=== PATIENT | female | born 1940 | race American Indian/Alaskan Native ===

== ENCOUNTER 2019-04-13 02:20 | Inpatient (IN) | payer MEDICARE ==
[2019-04-13] MEDS ORDERED: MORPHINE 2 MG/1 ML INJ IV ONE (02:25)
[2019-04-13] MEDS ORDERED: ONDANSETRON 4 MG/2 ML INJ IV ONE (02:25)
[2019-04-13] MEDS ORDERED: KETOROLAC 30 MG/1 ML INJ IV ONE (02:25)
[2019-04-13] MEDS ORDERED: HYDROmorphone 1 MG/1 ML INJ ONE (03:00)
[2019-04-13] MEDS ORDERED: HYDROmorphone 1 MG/1 ML INJ IV ONE (03:00)
[2019-04-13 03:22] LABS: Basophils % (Auto) 0.3 % (0.0-1.8); Eosinophils % (Auto) 0.2 % (0.0-4.3); Hematocrit 30.8 % (30.3-42.9); Hemoglobin 10.1 gm/dl (10.1-14.3); Lymphocytes # (Auto) 0.6 K/mm3 (1.2-5.4); Lymphocytes % (Auto) 9.1 % (13.4-35.0); Mean Corpuscular HGB Conc 33 % (30-34); Mean Corpuscular Volume 81 fl (79-97); Monocytes # (Auto) 0.3 K/mm3 (0.0-0.8); Monocytes % (Auto) 4.1 % (0.0-7.3); Platelet Count 227 K/mm3 (140-440); Red Blood Count 3.79 M/mm3 (3.65-5.03); Red Cell Distribution Width 16.4 % (13.2-15.2)
[2019-04-13 03:51] LABS: BUN/Creatinine Ratio 27; Blood Urea Nitrogen 19 mg/dL (7-17); Calcium 8.3 mg/dL (8.4-10.2); Hemolysis Index 4
--- NOTE | 2019-04-13 04:21 | XRay Report ---
X-RAY RIGHT FEMUR 2 VIEWS INDICATION / CLINICAL INFORMATION: fall with swelling and pain COMPARISON: None available. FINDINGS: BONES / JOINT(S): There is a severely comminuted and moderately displaced fracture of the distal femo ral metadiaphysis. Alignment of the right hip is within normal limits. Assessment of the right knee i s slightly limited on these projections, but without evidence for dislocation. SOFT TISSUES: Soft tissue swelling of the distal thigh. ADDITIONAL FINDINGS: None. IMPRESSION: 1. Severely comminuted and moderately displaced fracture of the distal femoral metadiaphysis. Signer Name: Nicci Wall MD Signed: 04/13/2019 4:17 AM Workstation Name: [email or web address]
[2019-04-13 04:35] LABS: INR 0.99 (0.87-1.13); Partial Thromboplastin Time 27.4 Sec. (24.2-36.6)
--- NOTE | 2019-04-13 04:54 | Emergency Department Report ---
ED Extremity Problem HPI - General Chief complaint: Extremity Injury, Lower Stated complaint: RIGHT THIGH PAIN Time Seen by Provider: 04/13/19 02:25 Source: patient, EMS Mode of arrival: Stretcher Limitations: Physical Limitation - History of Present Illness Initial comments: Patient is a 78-year-old female who fell from her bed prior to arrival and woke up to intense pain in her lower R thigh. Patient states pain is 10 out of 10 in severity. She had minimal relief with 100 of fentanyl prior to arrival. Patient states she doesn't believe she hit her. She had no headache. Patient states pain is worse with any movement and is better when her knee is flexed with pillows underneath. Severity scale (0 -10): 9 - Related Data Home Medications Medication Instructions Recorded Confirmed Last Taken C,E,Zinc,Copper 24/Om3/Lut/Luther 1 each PO DAILY 04/15/13 04/13/19 04/15/13 05:30 [Ocuvite Adult 50 Plus Softgel] Indra/D3/Mag11/Zinc/Academic Affairs Specialist/Owen/Bor 1 each PO BID 04/15/13 04/13/19 04/15/13 05:30 [Caltrate 600+D Plus Tablet] Insulin NPH/Regular [NovoLIN 70/30] 10 unit SQ QAM 04/15/13 04/13/19 04/15/13 05:45 Insulin NPH/Regular [NovoLIN 70/30] 10 unit SQ QPM 04/15/13 04/13/19 04/14/13 17:45 Aspirin 81 mg PO DAILY 04/13/19 04/13/19 Unknown Feosol 45mg 65 mg PO DAILY 04/13/19 04/13/19 Unknown Latanoprost 0.005% 1 drop OU HS 04/13/19 04/13/19 Unknown Losartan/Hydrochlorothiazide 100 mg PO DAILY 04/13/19 04/13/19 Unknown Previous Rx's Medication Instructions Recorded Last Taken Type Bisacodyl [Dulcolax suppos] 10 mg AR QDAY PRN #7 supp.rect 04/20/13 Unknown Rx Docusate Sodium [Colace CAP] 100 mg PO BID #30 capsule 04/20/13 Unknown Rx amLODIPine [Norvasc] 10 mg PO QDAY #30 tablet 04/20/13 Unknown Rx Apixaban [Eliquis] 2.5 mg PO BID 35 Days #70 tablet 04/20/19 Unknown Rx traMADol [Ultram 50 MG tab] 50 mg PO Q6HR PRN #20 tablet 04/20/19 Unknown Rx Allergies Allergy/AdvReac Type Severity Reaction Status Date / Time diclofenac sodium Allergy Unknown Verified 04/15/13 13:14 [From Voltaren] insulin isophane (NPH) Allergy Hives Verified 04/15/13 13:14 [Insulin Isophane NPH] clarithromycin [From Biaxin] AdvReac Vomiting Verified 04/15/13 13:14 hydrocodone [Hydrocodone] AdvReac Vomiting Verified 04/15/13 13:14 ED Review of Systems ROS: Stated complaint: RIGHT THIGH PAIN Other details as noted in HPI Comment: All other systems reviewed and negative ED Past Medical Hx - Past Medical History Hx Hypertension: Yes Hx Diabetes: Yes (SINCE 1972) Hx Sickle Cell Disease: No Hx Arthritis: Yes Hx Dementia: Yes - Surgical History Hx Cholecystectomy: Yes Additional Surgical History: tubal ligation, mole removed right arm (+ melanoma) - Social History Smoking Status: Never Smoker Substance Use Type: None - Medications Home Medications: Home Medications Medication Instructions Recorded Confirmed Last Taken Type C,E,Zinc,Copper 24/Om3/Lut/Luther 1 each PO DAILY 04/15/13 04/13/19 04/15/13 05:30 History [Ocuvite Adult 50 Plus Softgel] Indra/D3/Mag11/Zinc/Academic Affairs Specialist/Owen/Bor 1 each PO BID 04/15/13 04/13/19 04/15/13 05:30 History [Caltrate 600+D Plus Tablet] Insulin NPH/Regular [NovoLIN 70/30] 10 unit SQ QAM 04/15/13 04/13/19 04/15/13 05:45 History Insulin NPH/Regular [NovoLIN 70/30] 10 unit SQ QPM 04/15/13 04/13/19 04/14/13 17:45 History Bisacodyl [Dulcolax suppos] 10 mg AR QDAY PRN #7 supp.rect 04/20/13 04/13/19 Unknown Rx Docusate Sodium [Colace CAP] 100 mg PO BID #30 capsule 04/20/13 04/13/19 Unknown Rx amLODIPine [Norvasc] 10 mg PO QDAY #30 tablet 04/20/13 04/13/19 Unknown Rx Aspirin 81 mg PO DAILY 04/13/19 04/13/19 Unknown History Feosol 45mg 65 mg PO DAILY 04/13/19 04/13/19 Unknown History Latanoprost 0.005% 1 drop OU HS 04/13/19 04/13/19 Unknown History Losartan/Hydrochlorothiazide 100 mg PO DAILY 04/13/19 04/13/19 Unknown History Apixaban [Eliquis] 2.5 mg PO BID 35 Days #70 tablet 04/20/19 Unknown Rx traMADol [Ultram 50 MG tab] 50 mg PO Q6HR PRN #20 tablet 04/20/19 Unknown Rx ED Physical Exam - General Limitations: Physical Limitation General appearance: alert, in distress - Head Head exam: Present: atraumatic, normocephalic - Eye Eye exam: Present: normal appearance - ENT ENT exam: Present: mucous membranes moist - Neck Neck exam: Present: normal inspection - Respiratory Respiratory exam: Present: normal lung sounds bilaterally. Absent: respiratory distress, wheezes, rales - Cardiovascular Cardiovascular Exam: Present: regular rate, normal rhythm, normal heart sounds. Absent: systolic murmur, diastolic murmur, rubs, gallop - GI/Abdominal GI/Abdominal exam: Present: soft, normal bowel sounds. Absent: distended, tenderness, guarding - Extremities Exam Extremities exam: Present: normal inspection - Expanded Lower Extremity Exam Right Hip exam: Present: normal inspection. Absent: tenderness Upper Leg exam: Present: tenderness, swelling, deformity. Absent: full ROM Knee exam: Present: normal inspection Lower Leg exam: Present: normal inspection - Back Exam Back exam: Present: normal inspection - Neurological Exam Neurological exam: Present: alert, oriented X3 - Psychiatric Psychiatric exam: Present: normal affect, normal mood - Skin Skin exam: Present: warm, dry, intact, normal color. Absent: rash ED Course Vital Signs 04/13/19 04/13/19 04/13/19 02:26 02:28 02:30 Temperature Pulse Rate 71 Respiratory 22 Rate Blood Pressure 164/68 164/68 164/68 Blood Pressure 164/68 [Left] O2 Sat by Pulse 99 96 Oximetry 04/13/19 04/13/19 04/13/19 02:45 03:00 03:15 Temperature Pulse Rate Respiratory Rate Blood Pressure 151/60 160/57 158/60 Blood Pressure [Left] O2 Sat by Pulse 99 98 93 Oximetry 04/13/19 04/13/19 04/13/19 03:30 03:45 04:00 Temperature Pulse Rate Respiratory Rate Blood Pressure 153/58 159/56 147/57 Blood Pressure [Left] O2 Sat by Pulse 95 96 97 Oximetry 04/13/19 04/13/19 04/13/19 04:15 04:30 04:45 Temperature Pulse Rate Respiratory Rate Blood Pressure 150/60 144/53 158/58 Blood Pressure [Left] O2 Sat by Pulse 95 95 95 Oximetry 04/13/19 04/13/19 04/13/19 05:00 05:15 05:30 Temperature Pulse Rate Respiratory Rate Blood Pressure 158/58 151/60 155/59 Blood Pressure [Left] O2 Sat by Pulse 97 96 97 Oximetry 04/13/19 04/13/19 04/13/19 05:45 06:00 06:15 Temperature Pulse Rate Respiratory Rate Blood Pressure 139/55 145/59 148/56 Blood Pressure [Left] O2 Sat by Pulse 96 96 99 Oximetry 04/13/19 04/13/19 04/13/19 06:30 06:45 07:00 Temperature Pulse Rate Respiratory Rate Blood Pressure 150/62 151/61 159/66 Blood Pressure [Left] O2 Sat by Pulse 97 96 98 Oximetry 04/13/19 04/13/19 04/13/19 07:15 07:31 07:45 Temperature Pulse Rate Respiratory Rate Blood Pressure 167/64 167/64 167/64 Blood Pressure [Left] O2 Sat by Pulse 96 96 95 Oximetry 04/13/19 04/13/19 04/13/19 08:01 08:15 08:17 Temperature Pulse Rate 78 Respiratory 16 Rate Blood Pressure 167/64 167/64 Blood Pressure 167/74 [Left] O2 Sat by Pulse 98 96 96 Oximetry 04/13/19 04/13/19 04/13/19 08:30 08:45 09:00 Temperature Pulse Rate Respiratory Rate Blood Pressure 152/63 144/62 145/55 Blood Pressure [Left] O2 Sat by Pulse 96 98 97 Oximetry 04/13/19 04/13/19 04/13/19 09:15 09:30 09:45 Temperature Pulse Rate Respiratory Rate Blood Pressure 138/50 145/53 139/50 Blood Pressure [Left] O2 Sat by Pulse 97 96 97 Oximetry 04/13/19 04/13/19 04/13/19 10:00 10:15 10:30 Temperature Pulse Rate Respiratory Rate Blood Pressure 141/51 153/55 153/60 Blood Pressure [Left] O2 Sat by Pulse 97 97 97 Oximetry 04/13/19 04/13/19 04/13/19 10:45 11:00 11:15 Temperature Pulse Rate Respiratory Rate Blood Pressure 153/60 145/56 149/54 Blood Pressure [Left] O2 Sat by Pulse 97 98 97 Oximetry 04/13/19 04/13/19 04/13/19 11:25 11:30 11:45 Temperature Pulse Rate 86 Respiratory 17 Rate Blood Pressure 140/55 158/68 Blood Pressure 137/86 [Left] O2 Sat by Pulse 96 97 97 Oximetry 04/13/19 04/13/19 04/13/19 12:00 12:29 12:30 Temperature Pulse Rate Respiratory Rate Blood Pressure 171/62 171/62 161/57 Blood Pressure [Left] O2 Sat by Pulse 97 96 95 Oximetry 04/13/19 04/13/19 04/13/19 12:45 13:00 13:15 Temperature Pulse Rate Respiratory Rate Blood Pressure 139/52 144/50 147/46 Blood Pressure [Left] O2 Sat by Pulse 95 96 97 Oximetry 04/13/19 04/13/19 04/13/19 13:30 13:45 14:00 Temperature Pulse Rate Respiratory Rate Blood Pressure 148/55 148/61 147/54 Blood Pressure [Left] O2 Sat by Pulse 98 97 96 Oximetry 04/13/19 04/13/19 04/13/19 14:15 14:30 14:50 Temperature 99.2 F Pulse Rate 91 H Respiratory 18 Rate Blood Pressure 153/51 140/46 155/55 Blood Pressure [Left] O2 Sat by Pulse 97 97 96 Oximetry ED Medical Decision Making - Lab Data Result diagrams: 04/19/19 07:33 04/20/19 05:53 - Radiology Data X-RAY RIGHT FEMUR 2 VIEWS INDICATION / CLINICAL INFORMATION: fall with swelling and pain COMPARISON: None available. FINDINGS: BONES / JOINT(S): There is a severely comminuted and moderately displaced fracture of the distal femoral metadiaphysis. Alignment of the right hip is within normal limits. Assessment of the right knee is slightly limited on these projections, but without evidence for dislocation. SOFT TISSUES: Soft tissue swelling of the distal thigh. ADDITIONAL FINDINGS: None. IMPRESSION: 1. Severely comminuted and moderately displaced fracture of the distal femoral metadiaphysis. Signer Name: Nicci Wall MD Signed: 04/13/2019 4:17 AM Workstation Name: [id number] Critical care attestation.: If time is entered above; I have spent that time in minutes in the direct care of this critically ill patient, excluding procedure time. ED Disposition Clinical Impression: Femur fracture, right Qualifiers: Encounter type: initial encounter Femur location: shaft Fracture type: closed F racture morphology: comminuted Fracture alignment: displaced Qualified Code(s): S72.351A - Displaced comminuted fracture of shaft of right femur, initial encounter for closed fracture Disposition: DC-09 OP ADMIT IP TO THIS HOSP Is pt being admited?: Yes Does the pt Need Aspirin: No Condition: Fair
[2019-04-13] MEDS ORDERED: ONDANSETRON 4 MG/2 ML INJ IV PRN (10:54)
--- NOTE | 2019-04-13 10:54 | History and Physical Report ---
History of Present Illness Date of examination: 04/13/19 Date of admission: 04/13/19 Chief complaint: right hip fx History of present illness: 78-year-old female with past medical history diabetes mellitus type 2 and hypertension who presents status post fall from her bed earlier this morning with complaints of right hip pain. Patient reports the pain as 10/10 in s everity. Patient denies any syncope or loss of consciousness. Patient denies any chest pain or shortness of breath. No nausea vomiting or diarrhea. No cough or cold like symptoms. Past History Past Medical History: diabetes, hypertension, other (osteoporosis) Past Surgical History: No surgical history Social history: no significant social history Family history: no significant family history Medications and Allergies Allergies Allergy/AdvReac Type Severity Reaction Status Date / Time diclofenac sodium Allergy Unknown Verified 04/15/13 13:14 [From Voltaren] insulin isophane (NPH) Allergy Hives Verified 04/15/13 13:14 [Insulin Isophane NPH] clarithromycin [From Biaxin] AdvReac Vomiting Verified 04/15/13 13:14 hydrocodone [Hydrocodone] AdvReac Vomiting Verified 04/15/13 13:14 Home Medications Medication Instructions Recorded Confirmed Last Taken Type C,E,Zinc,Copper 24/Om3/Lut/Luther 1 each PO DAILY 04/15/13 04/13/19 04/15/13 05:30 History [Ocuvite Adult 50 Plus Softgel] Indra/D3/Mag11/Zinc/Toy Assembly Supervisor/Owen/Bor 1 each PO BID 04/15/13 04/13/19 04/15/13 05:30 History [Caltrate 600+D Plus Tablet] Insulin NPH/Regular [NovoLIN 70/30] 10 unit SQ QAM 04/15/13 04/13/19 04/15/13 05:45 History Insulin NPH/Regular [NovoLIN 70/30] 10 unit SQ QPM 04/15/13 04/13/19 04/14/13 17:45 History Bisacodyl [Dulcolax suppos] 10 mg NV QDAY PRN #7 supp.rect 04/20/13 04/13/19 Unknown Rx Docusate Sodium [Colace CAP] 100 mg PO BID #30 capsule 04/20/13 04/13/19 Unknown Rx amLODIPine [Norvasc] 10 mg PO QDAY #30 tablet 04/20/13 04/13/19 Unknown Rx Aspirin 81 mg PO DAILY 04/13/19 04/13/19 Unknown History Feosol 45mg 65 mg PO DAILY 04/13/19 04/13/19 Unknown History Latanoprost 0.005% 1 drop OU HS 04/13/19 04/13/19 Unknown History Losartan/Hydrochlorothiazide 100 mg PO DAILY 04/13/19 04/13/19 Unknown History Review of Systems All systems: negative Exam - Constitutional Vitals: Temp Pulse Resp BP Pulse Ox 78 16 167/74 96 04/13/19 08:17 04/13/19 08:17 04/13/19 08:17 04/13/19 08:17 General appearance: Present: no acute distress, well-nourished - EENT Eyes: Present: PERRL ENT: hearing intact, clear oral mucosa - Neck Neck: Present: supple, normal ROM - Respiratory Respiratory effort: normal Respiratory: bilateral: CTA - Cardiovascular Heart Sounds: Present: S1 & S2. Absent: rub, click - Extremities Extremities: pulses symmetrical Extremity abnormal: edema (right hip swelling and tenderness to palpation), tenderness (right hip) Peripheral Pulses: within normal limits - Abdominal General gastrointestinal: Present: soft, non-tender, non-distended, normal bowel sounds Female genitourinary: Present: normal - Integumentary Integumentary: Present: clear, warm, dry - Musculoskeletal Musculoskeletal: gait normal, strength equal bilaterally - Psychiatric Psychiatric: appropriate mood/affect, intact judgment & insight - Neurologic Neurologic: CNII-XII intact, moves all extremities Results - Labs CBC & Chem 7: 04/13/19 03:05 04/13/19 03:05 Labs: Laboratory Last Values WBC 6.8 K/mm3 (4.5-11.0) 04/13/19 03:05 RBC 3.79 M/mm3 (3.65-5.03) 04/13/19 03:05 Hgb 10.1 gm/dl (10.1-14.3) 04/13/19 03:05 Hct 30.8 % (30.3-42.9) 04/13/19 03:05 MCV 81 fl (79-97) 04/13/19 03:05 MCH 27 pg (28-32) L 04/13/19 03:05 MCHC 33 % (30-34) 04/13/19 03:05 RDW 16.4 % (13.2-15.2) H 04/13/19 03:05 Plt Count 227 K/mm3 (140-440) 04/13/19 03:05 Lymph % (Auto) 9.1 % (13.4-35.0) L 04/13/19 03:05 [place] % (Auto) 4.1 % (0.0-7.3) 04/13/19 03:05 Eos % (Auto) 0.2 % (0.0-4.3) 04/13/19 03:05 Baso % (Auto) 0.3 % (0.0-1.8) 04/13/19 03:05 Lymph # 0.6 K/mm3 (1.2-5.4) L 04/13/19 03:05 [place] # 0.3 K/mm3 (0.0-0.8) 04/13/19 03:05 Eos # 0.0 K/mm3 (0.0-0.4) 04/13/19 03:05 Baso # 0.0 K/mm3 (0.0-0.1) 04/13/19 03:05 Seg Neutrophils % 86.3 % (40.0-70.0) H 04/13/19 03:05 Seg Neutrophils # 5.8 K/mm3 (1.8-7.7) 04/13/19 03:05 PT 12.8 Sec. (12.2-14.9) 04/13/19 03:05 INR 0.99 (0.87-1.13) 04/13/19 03:05 APTT 27.4 Sec. (24.2-36.6) 04/13/19 03:05 Sodium 139 mmol/L (137-145) 04/13/19 03:05 Potassium 3.4 mmol/L (3.6-5.0) L 04/13/19 03:05 Chloride 100.8 mmol/L (98-107) 04/13/19 03:05 Carbon Dioxide 25 mmol/L (22-30) 04/13/19 03:05 Anion Gap 17 mmol/L 04/13/19 03:05 BUN 19 mg/dL (7-17) H 04/13/19 03:05 Creatinine 0.7 mg/dL (0.7-1.2) 04/13/19 03:05 Estimated GFR > 60 ml/min 04/13/19 03:05 BUN/Creatinine Ratio 27 % 04/13/19 03:05 Glucose 122 mg/dL (65-100) H 04/13/19 03:05 Calcium 8.3 mg/dL (8.4-10.2) L 04/13/19 03:05 Assessment and Plan Assessment and plan: Right hip fracture. Patient with x-ray revealing severely comminuted and moderately displaced fracture of the distal femoral metadiaphysis. Orthoplast consultation possible surgery in a.m. Pain control. Diabetes mellitus type II. Accu-Cheks and sliding scale regular insulin. Resume her home regimen. Hypertension. Resume Norvasc, losartan and hydrochlorothiazide.
[2019-04-13] MEDS: MORPHINE 2 MG/1 ML INJ IV PRN ×2 (11:26→19:37)
[2019-04-13] MEDS ORDERED: MORPHINE 2 MG/1 ML INJ ONE (11:26)
[2019-04-13 12:11] LABS: Bilirubin,Urine NEG (Negative); Blood,Urine NEG (Negative); Color,Urine Yellow (Yellow); Mucus,Urine FEW /HPF; Protein,Urine <15 mg/dL mg/dL (Negative); Urobilinogen,Urine < 2.0 mg/dL (<2.0)
--- NOTE | 2019-04-13 12:56 | XRay Report ---
LEFT TIBIA/FIBULA, 4 VIEWS, 04/13/2019 INDICATION / CLINICAL INFORMATION: history of ORIF left tibia. COMPARISON: 04/15/2013, FINDINGS: Intramedullary linda is present within the tibia and is intact. Prior ORIF of the distal fibula is note d. Old healed fracture of the mid fibular diaphysis is noted. No acute fracture or malalignment is id entified. The bones are slightly demineralized. IMPRESSION: 1. Prior ORIF of the distal fibula. Old healed fracture of the mid fibular shaft. 2. Intramedullary linda is present within the tibia. 3. No acute fracture noted. Signer Name: Jacquelyn Larios MD Signed: 04/13/2019 12:52 PM Workstation Name: [id number]
--- NOTE | 2019-04-13 12:59 | Cat Scan Report ---
CT lower extremity RT femur wo con INDICATION: comminuted right distal femur fx. TECHNIQUE: All CT scans at this location are performed using the following dose modulation technique: Automated exposure control. COMPARISON: Right femur x-ray 04/13/2019 FINDINGS: There is a markedly comminuted markedly displaced supracondylar fracture of the right distal femur me tadiaphysis with moderate posterior angulation of the main distal fracture fragment. The distal 0.8 a nd of the proximal fracture fragment located less than a centimeter away from the skin surface seen b est on coronal image 26 and sagittal image 56. No open compound fracture is seen. No fracture is seen within the right proximal femur or visualized portions of right hip. IMPRESSION: 1. Markedly comminuted markedly displaced supracondylar right distal femur fracture. 2. No open compound fracture or soft tissue gas. Signer Name: Wesley Garcia MD Signed: 04/13/2019 12:55 PM Workstation Name: [id number]
[2019-04-13] MEDS: SODIUM CHLORIDE 0.9% 1000 ML 1,000 ML IV SCH (14:56)
[2019-04-13] MEDS: FERROUS SULFATE 325 MG TAB PO SCH (16:26)
[2019-04-13] MEDS ORDERED: INSULIN REGULAR, HUMAN 100 UNITS/1 ML SUB-Q SCH (17:40)
[2019-04-13] MEDS ORDERED: INSULIN NPH/REGULAR 70/30 INJ SUB-Q ONE (18:00)
[2019-04-13] MEDS ORDERED: INSULIN NPH/REGULAR 70/30 INJ SUB-Q SCH (18:00)
[2019-04-13] MEDS: CALCIUM CARB/VIT D3/MINERALS 600 MG/800 UNITS TAB PO SCH (21:14)
[2019-04-14] MEDS: ACETAMINOPHEN 325 MG TAB PO PRN ×2 (00:11→19:48)
[2019-04-14] MEDS: MORPHINE 2 MG/1 ML INJ IV PRN (01:22)
[2019-04-14 05:47] LABS: Basophils % (Auto) 0.9 % (0.0-1.8); Eosinophils % (Auto) 0.7 % (0.0-4.3); Hematocrit 25.8 % (30.3-42.9); Hemoglobin 8.5 gm/dl (10.1-14.3); Lymphocytes # (Auto) 1.2 K/mm3 (1.2-5.4); Lymphocytes % (Auto) 34.1 % (13.4-35.0); Mean Corpuscular HGB Conc 33 % (30-34); Mean Corpuscular Volume 81 fl (79-97); Monocytes # (Auto) 0.3 K/mm3 (0.0-0.8); Monocytes % (Auto) 9.3 % (0.0-7.3); Platelet Count 198 K/mm3 (140-440); Red Blood Count 3.19 M/mm3 (3.65-5.03); Red Cell Distribution Width 16.5 % (13.2-15.2)
[2019-04-14 06:05] LABS: BUN/Creatinine Ratio 29; Blood Urea Nitrogen 23 mg/dL (7-17); Hemolysis Index 13
[2019-04-14] MEDS ORDERED: ONDANSETRON 4 MG/2 ML INJ IV PRN (08:28)
[2019-04-14] MEDS ORDERED: HYDROmorphone 1 MG/1 ML INJ IV PRN (08:28)
[2019-04-14] MEDS ORDERED: fentaNYL 100 MCG/2 ML INJ IV PRN (08:28)
[2019-04-14] MEDS ORDERED: PROPOFOL 200 MG/20 ML VIAL IV ONE (09:12)
[2019-04-14] MEDS ORDERED: HYDROmorphone 1 MG/1 ML INJ ONE (09:12)
[2019-04-14] MEDS ORDERED: LIDOCAINE MPF (2%) 20 MG/1 ML VIAL 5 ML ONE (09:12)
--- NOTE | 2019-04-14 09:28 | Progress Note ---
Assessment and Plan Assessment and plan: Right hip fracture. Patient with x-ray revealing severely comminuted and moderately displaced fracture of the distal femoral metadiaphysis. Ortho to perform surgery this morning. Continue Pain control. Diabetes mellitus type II. Accu-Cheks and sliding scale regular insulin. Continue Novolin units twice a day. Hypertension. Continue Norvasc, losartan and hydrochlorothiazide. History Interval history: No new issues overnight. Patient reports that her pain is under control. Hospitalist Physical - Constitutional Vitals: Temp Pulse Resp BP Pulse Ox 99.5 F 82 18 145/50 98 04/14/19 07:03 04/14/19 07:56 04/14/19 07:56 04/14/19 07:03 04/14/19 07:56 General appearance: Present: no acute distress, well-nourished - EENT Eyes: Present: PERRL, EOM intact ENT: hearing intact, clear oral mucosa, dentition normal - Neck Neck: Present: supple, normal ROM - Respiratory Respiratory effort: normal Respiratory: bilateral: CTA - Cardiovascular Rhythm: regular Heart Sounds: Present: S1 & S2. Absent: gallop, rub - Extremities Extremities: no ischemia, No edema, Full ROM - Abdominal General gastrointestinal: soft, non-tender, non-distended, normal bowel sounds - Integumentary Integumentary: Present: clear, warm, dry - Neurologic Neurologic: CNII-XII intact, moves all extremities Results - Labs CBC & Chem 7: 04/14/19 05:22 04/14/19 05:22 Labs: Laboratory Last Values WBC 3.6 K/mm3 (4.5-11.0) L 04/14/19 05:22 RBC 3.19 M/mm3 (3.65-5.03) L 04/14/19 05:22 Hgb 8.5 gm/dl (10.1-14.3) L 04/14/19 05:22 Hct 25.8 % (30.3-42.9) L 04/14/19 05:22 MCV 81 fl (79-97) 04/14/19 05:22 MCH 27 pg (28-32) L 04/14/19 05:22 MCHC 33 % (30-34) 04/14/19 05:22 RDW 16.5 % (13.2-15.2) H 04/14/19 05:22 Plt Count 198 K/mm3 (140-440) 04/14/19 05:22 Lymph % (Auto) 34.1 % (13.4-35.0) 04/14/19 05:22 [place] % (Auto) 9.3 % (0.0-7.3) H 04/14/19 05:22 Eos % (Auto) 0.7 % (0.0-4.3) 04/14/19 05:22 Baso % (Auto) 0.9 % (0.0-1.8) 04/14/19 05:22 Lymph # 1.2 K/mm3 (1.2-5.4) 04/14/19 05:22 [place] # 0.3 K/mm3 (0.0-0.8) 04/14/19 05:22 Eos # 0.0 K/mm3 (0.0-0.4) 04/14/19 05:22 Baso # 0.0 K/mm3 (0.0-0.1) 04/14/19 05:22 Seg Neutrophils % 55.0 % (40.0-70.0) 04/14/19 05:22 Seg Neutrophils # 2.0 K/mm3 (1.8-7.7) 04/14/19 05:22 PT 12.8 Sec. (12.2-14.9) 04/13/19 03:05 INR 0.99 (0.87-1.13) 04/13/19 03:05 APTT 27.4 Sec. (24.2-36.6) 04/13/19 03:05 Sodium 138 mmol/L (137-145) 04/14/19 05:22 Potassium 3.8 mmol/L (3.6-5.0) 04/14/19 05:22 Chloride 99.0 mmol/L (98-107) 04/14/19 05:22 Carbon Dioxide 25 mmol/L (22-30) 04/14/19 05:22 Anion Gap 18 mmol/L 04/14/19 05:22 BUN 23 mg/dL (7-17) H 04/14/19 05:22 Creatinine 0.8 mg/dL (0.7-1.2) 04/14/19 05:22 Estimated GFR > 60 ml/min 04/14/19 05:22 BUN/Creatinine Ratio 29 % 04/14/19 05:22 Glucose 128 mg/dL (65-100) H 04/14/19 05:22 POC Glucose 143 (70-105) H 04/14/19 07:10 Calcium 8.0 mg/dL (8.4-10.2) L 04/14/19 05:22 Urine Color Yellow (Yellow) 04/13/19 12:00 Urine Turbidity Clear (Clear) 04/13/19 12:00 Urine pH 5.0 (5.0-7.0) 04/13/19 12:00 Ur Specific [place] 1.014 (1.003-1.030) 04/13/19 12:00 Urine Protein <15 mg/dl mg/dL (Negative) 04/13/19 12:00 Urine Glucose (UA) Neg mg/dL (Negative) 04/13/19 12:00 Urine Ketones 20 mg/dL (Negative) 04/13/19 12:00 Urine Blood Neg (Negative) 04/13/19 12:00 Urine Nitrite Neg (Negative) 04/13/19 12:00 Urine Bilirubin Neg (Negative) 04/13/19 12:00 Urine Urobilinogen < 2.0 mg/dL (<2.0) 04/13/19 12:00 Ur Leukocyte Esterase Neg (Negative) 04/13/19 12:00 Urine WBC (Auto) 1.0 /HPF (0.0-6.0) 04/13/19 12:00 Urine RBC (Auto) 3.0 /HPF (0.0-6.0) 04/13/19 12:00 U Epithel Cells (Auto) < 1.0 /HPF (0-13.0) 04/13/19 12:00 Urine Mucus Few /HPF 04/13/19 12:00 Active Medications - Current Medications Current Medications: Generic Name Dose Route Start Last Admin Trade Name Freq PRN Reason Stop Dose Admin Acetaminophen 650 mg 04/13/19 10:54 04/14/19 00:11 Tylenol PO 650 mg Q4H PRN Administration Pain MILD(1-3)/Fever >100.5/[place] Amlodipine Besylate 10 mg 04/14/19 10:00 Norvasc PO QDAY PATTI Fentanyl 50 mcg 04/14/19 08:28 Sublimaze IV 04/14/19 16:00 Q5MIN PRN Pain , Severe (7-10) Ferrous Sulfate 325 mg 04/13/19 16:00 04/13/19 16:26 Feosol PO 325 mg DAILY PATTI Administration Hydrochlorothiazide 12.5 mg 04/14/19 10:00 Hctz PO QDAY PATTI Hydromorphone HCl 0.5 mg 04/14/19 08:28 Dilaudid IV 04/14/19 16:00 Q10MIN PRN Pain , Severe (7-10) Sodium Chloride 1,000 mls @ 42 mls/hr 04/13/19 11:00 04/13/19 14:56 Nacl 0.9% 1000 Ml IV 42 mls/hr DIRECT PATTI Administration Insulin Human Isoph/Insulin Regular 10 unit 04/14/19 17:00 Humulin 70/30 SUB-Q BIDDIAB [facility] Losartan Potassium 100 mg 04/14/19 10:00 Cozaar PO QDAY [facility] Morphine Sulfate 2 mg 04/13/19 10:54 04/14/19 01:22 Morphine IV 2 mg Q4H PRN Administration Pain, Moderate (4-6) Multivitamins/Minerals 1 each 04/13/19 22:00 04/13/19 21:14 Caltrate Plus PO 1 each BID PATTI Administration Multivitamins/Minerals 1 each 04/14/19 12:00 Theragran-M Tab PO QDAY [facility] Ondansetron HCl 4 mg 04/13/19 10:54 Zofran IV Q8H PRN Nausea And Vomiting Ondansetron HCl 4 mg 04/14/19 08:28 Zofran IV 04/14/19 16:00 ONCE PRN Nausea And Vomiting Sodium Chloride 10 ml 04/13/19 22:00 04/13/19 21:15 Sodium Chloride Flush Syringe 10 Ml IV 10 ml BID PATTI Administration Sodium Chloride 10 ml 04/13/19 10:54 04/13/19 15:07 Sodium Chloride Flush Syringe 10 Ml IV 10 ml PRN PRN Administration LINE FLUSH
[2019-04-14] MEDS ORDERED: ceFAZolin/Water 2 GM/20 ML 2 GM/20 ML SYRINGE IV ONE (09:38)
--- NOTE | 2019-04-14 09:50 | Anesthesia Day of Surgery ---
Anesthesia Day of Surgery - Day of Surgery Patient Examined: Yes Patient H&P Reviewed: Yes Patient is NPO: Yes
--- NOTE | 2019-04-14 09:54 | Anesthesia Consultation ---
Anesthesia Consult and Med Hx Date of service: 04/14/19 - Airway Anesthetic Teeth Evaluation: Good ROM Head & Neck: Adequate Mental/Hyoid Distance: Adequate Mallampati Class: Class II Intubation Access Assessment: Good - Pre-Operative Health Status ASA Pre-Surgery Classification: ASA2, Emergency Proposed Anesthetic Plan: General - Cardiovascular System Hx Hypertension: Yes - Endocrine Hx Non-Insulin Dependent Diabetes: Yes - Hematic Hx Anemia: Yes Hx Sickle Cell Disease: No - Additional Comments Anesthesia Medical History Comments: Pt very active and states she can climb two flights of stairs. Drives herself
[2019-04-14] MEDS ORDERED: HYDROCHLOROTHIAZIDE PO SCH (10:00)
[2019-04-14] MEDS ORDERED: [UNRECOGNIZED DRUG - OTHER] PO SCH (10:00)
[2019-04-14] MEDS ORDERED: LOSARTAN PO SCH (10:00)
[2019-04-14] MEDS ORDERED: FEOSOL PO SCH (10:00)
[2019-04-14] MEDS ORDERED: ONDANSETRON 4 MG/2 ML INJ ONE (10:55)
[2019-04-14] MEDS: FERROUS SULFATE 325 MG TAB PO SCH (10:58)
[2019-04-14] MEDS: LOSARTAN 50 MG TAB PO SCH (10:58)
[2019-04-14] MEDS: amLODIPine 10 MG TAB PO SCH (10:58)
[2019-04-14] MEDS: hydroCHLOROthiazide 12.5 MG CAP PO SCH (10:58)
[2019-04-14] MEDS: CALCIUM CARB/VIT D3/MINERALS 600 MG/800 UNITS TAB PO SCH ×2 (10:58→22:17)
--- NOTE | 2019-04-14 11:02 | Consultation ---
History of Present Illness - [facility] Consult date: 04/14/19 Consult reason: fracture History of present illness: 78-year-old female who complains of right knee and thigh pain after a fall at home patient states she got up from bed loss of balance and fell onto her right leg patient states she lost consciousness for a while woke up and was able to contact EMS she was brought to the emergency department at [facility] where x-rays were taken revealing a displaced right distal femur fracture Past History Past Medical History: diabetes, hypertension, other (osteoporosis) Past Surgical History: Other (intramedullary nail left tibia) Social history: no significant social history Family history: no significant family history Medications and Allergies Allergies Allergy/AdvReac Type Severity Reaction Status Date / Time diclofenac sodium Allergy Unknown Verified 04/15/13 13:14 [From Voltaren] insulin isophane (NPH) Allergy Hives Verified 04/15/13 13:14 [Insulin Isophane NPH] clarithromycin [From Biaxin] AdvReac Vomiting Verified 04/15/13 13:14 hydrocodone [Hydrocodone] AdvReac Vomiting Verified 04/15/13 13:14 Home Medications Medication Instructions Recorded Confirmed Last Taken Type C,E,Zinc,Copper 24/Om3/Lut/Luther 1 each PO DAILY 04/15/13 04/13/19 04/15/13 05:30 History [Ocuvite Adult 50 Plus Softgel] Indra/D3/Mag11/Zinc/Cargo Supervisor/Owen/Bor 1 each PO BID 04/15/13 04/13/19 04/15/13 05:30 History [Caltrate 600+D Plus Tablet] Insulin NPH/Regular [NovoLIN 70/30] 10 unit SQ QAM 04/15/13 04/13/19 04/15/13 05:45 History Insulin NPH/Regular [NovoLIN 70/30] 10 unit SQ QPM 04/15/13 04/13/19 04/14/13 17:45 History Bisacodyl [Dulcolax suppos] 10 mg LA QDAY PRN #7 supp.rect 04/20/13 04/13/19 Unknown Rx Docusate Sodium [Colace CAP] 100 mg PO BID #30 capsule 04/20/13 04/13/19 Unknown Rx amLODIPine [Norvasc] 10 mg PO QDAY #30 tablet 04/20/13 04/13/19 Unknown Rx Aspirin 81 mg PO DAILY 04/13/19 04/13/19 Unknown History Feosol 45mg 65 mg PO DAILY 04/13/19 04/13/19 Unknown History Latanoprost 0.005% 1 drop OU HS 04/13/19 04/13/19 Unknown History Losartan/Hydrochlorothiazide 100 mg PO DAILY 04/13/19 04/13/19 Unknown History Active Meds: Active Medications Acetaminophen (Tylenol) 650 mg PO Q4H PRN PRN Reason: Pain MILD(1-3)/Fever >100.5/[place] Last Admin: 04/14/19 00:11 Dose: 650 mg Documented by: Amlodipine Besylate (Norvasc) 10 mg PO QDAY [facility] Fentanyl (Sublimaze) 50 mcg IV Q5MIN PRN PRN Reason: Pain , Severe (7-10) Stop: 04/14/19 16:00 Ferrous Sulfate (Feosol) 325 mg PO DAILY [facility] Last Admin: 04/13/19 16:26 Dose: 325 mg Documented by: Hydrochlorothiazide (Hctz) 12.5 mg PO QDAY [facility] Hydromorphone HCl (Dilaudid) 0.5 mg IV Q10MIN PRN PRN Reason: Pain , Severe (7-10) Stop: 04/14/19 16:00 Sodium Chloride (Nacl 0.9% 1000 Ml) 1,000 mls @ 42 mls/hr IV DIRECT PATTI Last Admin: 04/13/19 14:56 Dose: 42 mls/hr Documented by: Insulin Human Isoph/Insulin Regular (Humulin 70/30) 10 unit SUB-Q BIDDIAB [facility] Losartan Potassium (Cozaar) 100 mg PO QDAY [facility] Morphine Sulfate (Morphine) 2 mg IV Q4H PRN PRN Reason: Pain, Moderate (4-6) Last Admin: 04/14/19 01:22 Dose: 2 mg Documented by: Multivitamins/Minerals (Caltrate Plus) 1 each PO BID [facility] Last Admin: 04/13/19 21:14 Dose: 1 each Documented by: Multivitamins/Minerals (Theragran-M Tab) 1 each PO QDAY [facility] Ondansetron HCl (Zofran) 4 mg IV Q8H PRN PRN Reason: Nausea And Vomiting Ondansetron HCl (Zofran) 4 mg IV ONCE PRN PRN Reason: Nausea And Vomiting Stop: 04/14/19 16:00 Sodium Chloride (Sodium Chloride Flush Syringe 10 Ml) 10 ml IV BID PATTI Last Admin: 04/13/19 21:15 Dose: 10 ml Documented by: Sodium Chloride (Sodium Chloride Flush Syringe 10 Ml) 10 ml IV PRN PRN PRN Reason: LINE FLUSH Last Admin: 04/13/19 15:07 Dose: 10 ml Documented by: Physical Examination - Physical exam Narrative exam: On physical examination significant muscle skeletal findings relates to the right lower extremity. Patient is noted to have shortening of the right thigh along with bruising noted the along the distal medial border she was tender on palpation compartments are soft distal neurovascular status is intact Plain x-rays taken of the right femur reveal a comminuted displaced distal femur fracture Eyes: PERRL ENT: Positive: clear oral mucosa Respiratory effort: normal Respiratory: bilateral: CTA Rhythm: regular Heart Sounds: Positive: S1 & S2 General gastrointestinal: Positive: soft, non-tender, non-distended, normal bowel sounds Integumentary: clear, warm, dry Neurologic: Positive: CNII-XII intact, moves all extremities, gait normal. Negative: focal deficits - Cervical Spine Neck pain: none Tenderness with palpation: none Full ROM: yes ROM: flexion: normal ROM: extension: normal ROM: rotation right: normal ROM: rotation left: normal ROM: lateral flexion right: normal ROM: lateral flexion left: normal - Lumbar Spine Back pain: none Tenderness with palpation: none Appearance: normal Full ROM: yes ROM: flexion: normal ROM: extension: normal ROM: rotation right: normal ROM: rotation left: normal ROM: lateral flexion right: normal ROM: lateral flexion left: normal Assessment and Plan Comminuted displaced right distal femur fracture Plan - discussed treatment options with the patient based on the history and physical exam and review of her x-rays I recommended surgical fixation with intramedullary nail right distal femur
--- NOTE | 2019-04-14 11:06 | Procedure Note ---
Date of procedure: 04/14/19 Pre-op diagnosis: displaced comminuted right distal femur fracture Post-op diagnosis: same Procedure: Closed reduction and insertion of intramedullary nail right distal femur Procedure The patient was brought to the OR on the hospital bed following induction and intubation by anesthesia she was placed onto the OR table in the supine position. The patient's right lower extremity was prepped and draped in the usual sterile manner. A timeout procedure was done to identify the patient and the correct operative site. An incision was made over the patellar tendon this was taken down sharply through skin and subcutaneous using digital palpation the intercondylar notch(palpated next a threaded guidewire was inserted into the distal femur and under C-arm visualization crossed over the fracture site into the proximal femoral canal The alignment was visualized again on C-arm following this the medullary canal was reamed to a 13 mm diameter this was then followed by insertion of a 12 x 380 mm retrograde IM nail again the nail was inserted in a retrograde fashion following this to distal locking screws were inserted using a targeting device following this a proximal locking screw was inserted going from anterior to posterior again C-arm x-rays were taken showing good reduction of the fracture and placement of all hardware following this the wound was copiously irrigated and was closed in a standard routine fashion. No complications patient was taken to postanesthesia recovery in a stable condition Anesthesia: NANCY Surgeon: ESTEBAN QUACH Wood Form Builder: SABRINA COPELAND Estimated blood loss: 50-100ml Pathology: none Condition: stable Disposition: PACU
[2019-04-14] MEDS ORDERED: LACTATED RINGERS 1,000 ML ONE (11:18)
[2019-04-14] MEDS ORDERED: INSULIN REGULAR, HUMAN 100 UNITS/1 ML SUB-Q ONE (12:19)
--- NOTE | 2019-04-14 13:06 | XRay Report ---
INTRAOPERATIVE FLUOROSCOPY: 5 IMAGES OF RIGHT FEMUR INDICATION / CLINICAL INFORMATION: MAIN: RETROGRADE DISTAL RIGHT FEMUR NAILING IMAGES IN OR.. TECHNIQUE: Intraoperative spot images were obtained during the procedure. FINDINGS: Retrograde statically locked intramedullary nail traverses the fracture of the right distal femur in expected position Fluoroscopy Time: 0.7 minutes. Fluoroscopy Images: 5. Signer Name: Wesley Garcia MD Signed: 04/14/2019 1:02 PM Workstation Name: [id number]
[2019-04-14] MEDS: MULTIVITAMINS,THER W-MINERALS TAB PO SCH (14:44)
--- NOTE | 2019-04-14 14:53 | Post Anesthesia Evaluation ---
- Post Anesthesia Evaluation Patient Participated: Yes Airway Patent: Yes Stable Respiratory Function: Yes Nausea/Vomiting: No Temp > 96.8F: Yes Pain Manageable: Yes Adequeate Hydration: Yes Anesthesia Complications: No Block Receding Appropriately: Not Applicable Patient on Ventilator: No
[2019-04-14] MEDS: INSULIN NPH/REGULAR 70/30 INJ SUB-Q SCH (18:11)
[2019-04-15 04:52] LABS: Basophils % (Auto) 0.3 % (0.0-1.8); Eosinophils % (Auto) 0.5 % (0.0-4.3); Hemoglobin 6.7 gm/dl (10.1-14.3); Lymphocytes # (Auto) 0.5 K/mm3 (1.2-5.4); Mean Corpuscular HGB Conc 33 % (30-34); Mean Corpuscular Volume 82 fl (79-97); Monocytes # (Auto) 0.4 K/mm3 (0.0-0.8); Monocytes % (Auto) 7.2 % (0.0-7.3); Platelet Count 125 K/mm3 (140-440); Red Blood Count 2.45 M/mm3 (3.65-5.03); Red Cell Distribution Width 16.6 % (13.2-15.2)
[2019-04-15 05:03] LABS: BUN/Creatinine Ratio 22; Blood Urea Nitrogen 13 mg/dL (7-17); Calcium 7.5 mg/dL (8.4-10.2); Hemolysis Index 7
[2019-04-15] MEDS: SODIUM CHLORIDE 0.9% 1000 ML 1,000 ML IV SCH (05:23)
[2019-04-15] MEDS: ACETAMINOPHEN 325 MG TAB PO PRN ×3 (05:24→16:40)
[2019-04-15] MEDS: INSULIN NPH/REGULAR 70/30 INJ SUB-Q SCH ×2 (08:49→16:41)
[2019-04-15] MEDS: ENOXAPARIN 40 MG/0.4 ML INJ SUB-Q SCH (08:59)
[2019-04-15] MEDS: FERROUS SULFATE 325 MG TAB PO SCH (09:00)
[2019-04-15] MEDS: MULTIVITAMINS,THER W-MINERALS TAB PO SCH (09:00)
[2019-04-15] MEDS: LOSARTAN 50 MG TAB PO SCH (09:00)
[2019-04-15] MEDS: hydroCHLOROthiazide 12.5 MG CAP PO SCH (09:00)
[2019-04-15] MEDS: amLODIPine 10 MG TAB PO SCH (09:00)
--- NOTE | 2019-04-15 10:08 | Progress Note ---
Assessment and Plan Assessment and plan: Right hip fracture. Patient with x-ray revealing severely comminuted and moderately displaced fracture of the distal femoral metadiaphysis. Ortho to perform surgery this morning. Continue Pain control. Diabetes mellitus type II. Accu-Cheks and sliding scale regular insulin. Continue Novolin units twice a day. Hypertension. Continue Norvasc, losartan and hydrochlorothiazide. Anemia. Transfuse 1 unit PRBCs. Etiology likely blood loss from surgery History Interval history: No new issues overnight. Patient reports that her pain is under control. Hospitalist Physical - Constitutional Vitals: Temp Pulse Resp BP Pulse Ox 100.1 F H 99 H 18 140/48 95 04/15/19 07:26 04/15/19 07:26 04/15/19 07:26 04/15/19 07:26 04/15/19 08:07 General appearance: Present: no acute distress, well-nourished - EENT Eyes: Present: PERRL, EOM intact ENT: hearing intact, clear oral mucosa, dentition normal - Neck Neck: Present: supple, normal ROM - Respiratory Respiratory effort: normal Respiratory: bilateral: CTA - Cardiovascular Rhythm: regular Heart Sounds: Present: S1 & S2. Absent: gallop, rub - Extremities Extremities: no ischemia, No edema, Full ROM - Abdominal General gastrointestinal: soft, non-tender, non-distended, normal bowel sounds - Integumentary Integumentary: Present: clear, warm, dry - Neurologic Neurologic: CNII-XII intact, moves all extremities Results - Labs CBC & Chem 7: 04/15/19 04:14 04/15/19 04:14 Labs: Laboratory Last Values WBC 4.9 K/mm3 (4.5-11.0) 04/15/19 04:14 RBC 2.45 M/mm3 (3.65-5.03) L 04/15/19 04:14 Hgb 6.7 gm/dl (10.1-14.3) L 04/15/19 04:14 Hct 20.0 % (30.3-42.9) L 04/15/19 04:14 MCV 82 fl (79-97) 04/15/19 04:14 MCH 27 pg (28-32) L 04/15/19 04:14 MCHC 33 % (30-34) 04/15/19 04:14 RDW 16.6 % (13.2-15.2) H 04/15/19 04:14 Plt Count 125 K/mm3 (140-440) L 04/15/19 04:14 Lymph % (Auto) 11.0 % (13.4-35.0) L 04/15/19 04:14 [place] % (Auto) 7.2 % (0.0-7.3) 04/15/19 04:14 Eos % (Auto) 0.5 % (0.0-4.3) 04/15/19 04:14 Baso % (Auto) 0.3 % (0.0-1.8) 04/15/19 04:14 Lymph # 0.5 K/mm3 (1.2-5.4) L 04/15/19 04:14 [place] # 0.4 K/mm3 (0.0-0.8) 04/15/19 04:14 Eos # 0.0 K/mm3 (0.0-0.4) 04/15/19 04:14 Baso # 0.0 K/mm3 (0.0-0.1) 04/15/19 04:14 Seg Neutrophils % 81.0 % (40.0-70.0) H 04/15/19 04:14 Seg Neutrophils # 4.0 K/mm3 (1.8-7.7) 04/15/19 04:14 PT 12.8 Sec. (12.2-14.9) 04/13/19 03:05 INR 0.99 (0.87-1.13) 04/13/19 03:05 APTT 27.4 Sec. (24.2-36.6) 04/13/19 03:05 Sodium 134 mmol/L (137-145) L 04/15/19 04:14 Potassium 3.8 mmol/L (3.6-5.0) 04/15/19 04:14 Chloride 99.0 mmol/L (98-107) 04/15/19 04:14 Carbon Dioxide 22 mmol/L (22-30) 04/15/19 04:14 Anion Gap 17 mmol/L 04/15/19 04:14 BUN 13 mg/dL (7-17) 04/15/19 04:14 Creatinine 0.6 mg/dL (0.7-1.2) L 04/15/19 04:14 Estimated GFR > 60 ml/min 04/15/19 04:14 BUN/Creatinine Ratio 22 % 04/15/19 04:14 Glucose 255 mg/dL (65-100) H 04/15/19 04:14 POC Glucose 276 (70-105) H 04/15/19 07:33 Calcium 7.5 mg/dL (8.4-10.2) L 04/15/19 04:14 Urine Color Yellow (Yellow) 04/13/19 12:00 Urine Turbidity Clear (Clear) 04/13/19 12:00 Urine pH 5.0 (5.0-7.0) 04/13/19 12:00 Ur Specific [place] 1.014 (1.003-1.030) 04/13/19 12:00 Urine Protein <15 mg/dl mg/dL (Negative) 04/13/19 12:00 Urine Glucose (UA) Neg mg/dL (Negative) 04/13/19 12:00 Urine Ketones 20 mg/dL (Negative) 04/13/19 12:00 Urine Blood Neg (Negative) 04/13/19 12:00 Urine Nitrite Neg (Negative) 04/13/19 12:00 Urine Bilirubin Neg (Negative) 04/13/19 12:00 Urine Urobilinogen < 2.0 mg/dL (<2.0) 04/13/19 12:00 Ur Leukocyte Esterase Neg (Negative) 04/13/19 12:00 Urine WBC (Auto) 1.0 /HPF (0.0-6.0) 04/13/19 12:00 Urine RBC (Auto) 3.0 /HPF (0.0-6.0) 04/13/19 12:00 U Epithel Cells (Auto) < 1.0 /HPF (0-13.0) 04/13/19 12:00 Urine Mucus Few /HPF 04/13/19 12:00 Active Medications - Current Medications Current Medications: Generic Name Dose Route Start Last Admin Trade Name Freq PRN Reason Stop Dose Admin Acetaminophen 650 mg 04/13/19 10:54 04/15/19 05:24 Tylenol PO 650 mg Q4H PRN Administration Pain MILD(1-3)/Fever >100.5/[place] Amlodipine Besylate 10 mg 04/14/19 10:00 04/15/19 09:00 Norvasc PO 10 mg QDAY PATTI Administration Enoxaparin Sodium 40 mg 04/15/19 10:00 04/15/19 08:59 Lovenox SUB-Q 40 mg QDAY PATTI Administration Ferrous Sulfate 325 mg 04/13/19 16:00 04/15/19 09:00 Feosol PO 325 mg DAILY PATTI Administration Hydrochlorothiazide 12.5 mg 04/14/19 10:00 04/15/19 09:00 Hctz PO 12.5 mg QDAY PATTI Administration Sodium Chloride 1,000 mls @ 42 mls/hr 04/13/19 11:00 04/15/19 05:23 Nacl 0.9% 1000 Ml IV 42 mls/hr DIRECT PATTI Administration Insulin Human Isoph/Insulin Regular 10 unit 04/14/19 17:00 04/15/19 08:49 Humulin 70/30 SUB-Q 10 unit BIDDIAB PATTI Administration Losartan Potassium 100 mg 04/14/19 10:00 04/15/19 09:00 Cozaar PO 100 mg QDAY PATTI Administration Morphine Sulfate 2 mg 04/13/19 10:54 04/14/19 01:22 Morphine IV 2 mg Q4H PRN Administration Pain, Moderate (4-6) Multivitamins/Minerals 1 each 04/13/19 22:00 04/14/19 22:17 Caltrate Plus PO 1 each BID PATTI Administration Multivitamins/Minerals 1 each 04/14/19 12:00 04/15/19 09:00 Theragran-M Tab PO 1 each QDAY PATTI Administration Ondansetron HCl 4 mg 04/13/19 10:54 Zofran IV Q8H PRN Nausea And Vomiting Sodium Chloride 10 ml 04/13/19 22:00 04/14/19 21:06 Sodium Chloride Flush Syringe 10 Ml IV 10 ml BID PATTI Administration Sodium Chloride 10 ml 04/13/19 10:54 04/13/19 15:07 Sodium Chloride Flush Syringe 10 Ml IV 10 ml PRN PRN Administration LINE FLUSH Sodium Chloride 10 ml 04/14/19 12:00 Sodium Chloride Flush Syringe 10 Ml IV 04/17/19 11:59 PRN NR
[2019-04-15] MEDS: CALCIUM CARB/VIT D3/MINERALS 600 MG/800 UNITS TAB PO SCH ×2 (10:29→21:44)
[2019-04-15] MEDS ORDERED: SODIUM CHLORIDE 0.9% 500 ML 500 ML IV NR (10:30)
[2019-04-15] MEDS: DOCUSATE SODIUM 100 MG CAP PO SCH (21:45)
[2019-04-16] MEDS: MORPHINE 2 MG/1 ML INJ IV PRN ×2 (02:26→23:37)
[2019-04-16] MEDS: ACETAMINOPHEN 325 MG TAB PO PRN ×2 (02:32→22:46)
[2019-04-16] MEDS ORDERED: DEXTROSE 50% IN WATER (25GM) 50 ML SYRINGE IV PRN (02:47)
[2019-04-16] MEDS: INSULIN NPH/REGULAR 70/30 INJ SUB-Q SCH ×2 (08:55→17:48)
[2019-04-16] MEDS: INSULIN REGULAR, HUMAN 100 UNITS/1 ML SUB-Q SCH ×4 (08:56→22:17)
[2019-04-16] MEDS: hydroCHLOROthiazide 12.5 MG CAP PO SCH (09:00)
[2019-04-16] MEDS: FERROUS SULFATE 325 MG TAB PO SCH (09:00)
[2019-04-16] MEDS: MULTIVITAMINS,THER W-MINERALS TAB PO SCH (09:00)
[2019-04-16] MEDS: CALCIUM CARB/VIT D3/MINERALS 600 MG/800 UNITS TAB PO SCH ×2 (09:00→22:46)
[2019-04-16] MEDS: ENOXAPARIN 40 MG/0.4 ML INJ SUB-Q SCH (09:00)
[2019-04-16] MEDS: DOCUSATE SODIUM 100 MG CAP PO SCH ×2 (09:01→22:46)
--- NOTE | 2019-04-16 11:43 | Progress Note ---
Assessment and Plan 78-year-old female with past medical history diabetes mellitus type 2 and hypertension who presents status post fall from her bed earlier this morning with complaints of right hip pain. Patient reports the pain as 10/10 in severity. Patient denies any syncope or loss of consciousness. Patient denies any chest pain or shortness of breath. No nausea vomiting or diarrhea. No cough or cold like symptoms. x-ray revealed severely comminuted and moderately displaced fracture of the distal femoral metadiaphysis. - Right hip fracture. Status post IM nail, of right femur postop day #2 Continue Pain control. PT - Diabetes mellitus type II. Accu-Checks and sliding scale regular insulin. Continue Novolin units twice a day. - Hypertension. Continue Norvasc, losartan and hydrochlorothiazide. - Anemia. Transfuse 1 unit PRBCs. Etiology likely blood loss from surgery -DVT prophylaxis with SCDs and Lovenox Subjective Date of service: 04/16/19 Principal diagnosis: right hip Fx, T2DM, HTN, anemia Interval history: Laboratory in bed. Pain right hip well controlled. Objective - Exam Narrative Exam: Constitutional: Well-nourished well-developed. In no distress Head: Normocephalic atraumatic Eyes: Pupils are equal round and reactive to light Nose: No enlarged turbinates, no septal deviation. Mouth: Moist mucous membranes. Neck: Supple no thyromegaly. No bruit. No JVD Heart: Regular rate and rhythm, S1-S2 normal. No rubs murmurs or gallop Lungs: Clear to auscultation bilaterally. no rales or rhonchi Abdomen: Soft, nontender. Bowel sound are present. Extremities: No edema, no cyanosis, no clubbing. Neuro: Alert oriented Oriented x3. No focal sensory or motor deficit. Skin: No rashes or hyperpigmented spots Musculoskeletal system: No joint pain or swelling Hematological: No petechia or subcutanous hemorrhages. Immunological: No multiple septic spots on the skin Lymphatic: No generalized lymphadenopathy Psychiatry: Euthymic. Calm. - Constitutional Vitals: Vital Signs - 12hr 04/16/19 04/16/19 04:24 06:49 Temperature 98.5 F 99.2 F Pulse Rate 92 H 88 Respiratory 18 20 Rate Blood Pressure 128/44 125/49 O2 Sat by Pulse 96 97 Oximetry - Labs CBC & Chem 7: 04/16/19 13:35 04/16/19 13:35 Labs: Abnormal lab results 04/15/19 04/15/19 04/15/19 Range/Units 11:11 11:44 16:40 POC Glucose 303 H 372 H (70-105) Crossmatch See Detail 04/15/19 04/16/19 Range/Units 21:08 06:59 POC Glucose 322 H 319 H (70-105) Crossmatch
[2019-04-16] MEDS: LOSARTAN 50 MG TAB PO SCH (12:12)
[2019-04-16] MEDS: amLODIPine 10 MG TAB PO SCH (12:13)
--- NOTE | 2019-04-16 13:28 | Progress Note ---
Assessment and Plan s/p IM nail right femur post op day #2 continue PT and rehab Subjective Date of service: 04/16/19 Interval history: no major c/o's noted, PT started, .... Objective Vital signs: Vital Signs - 12hr 04/16/19 04/16/19 04/16/19 04:24 06:49 11:00 Temperature 98.5 F 99.2 F 97.3 F L Pulse Rate 92 H 88 116 H Respiratory 18 20 20 Rate Blood Pressure 128/44 125/49 Blood Pressure 161/69 [Left] O2 Sat by Pulse 96 97 18 L Oximetry 04/16/19 04/16/19 11:44 12:12 Temperature 97.6 F Pulse Rate 117 H 117 H Respiratory 20 Rate Blood Pressure 161/69 161/69 Blood Pressure [Left] O2 Sat by Pulse 97 Oximetry Incision: healing, clean and dry Weight bearing status: partial - Labs CBC & BMP: 04/15/19 04:14 04/15/19 04:14 Labs: Abnormal lab results 04/15/19 04/15/19 04/15/19 Range/Units 11:11 16:40 21:08 POC Glucose 372 H 322 H (70-105) Crossmatch See Detail 04/16/19 04/16/19 Range/Units 06:59 11:55 POC Glucose 319 H 324 H (70-105) Crossmatch
[2019-04-16 14:07] LABS: Hematocrit 24.5 % (30.3-42.9); Hemoglobin 8.3 gm/dl (10.1-14.3); Mean Corpuscular HGB Conc 34 % (30-34); Mean Corpuscular Volume 81 fl (79-97); Platelet Count 147 K/mm3 (140-440); Red Blood Count 3.03 M/mm3 (3.65-5.03)
[2019-04-16 14:24] LABS: BUN/Creatinine Ratio 27; Blood Urea Nitrogen 16 mg/dL (7-17); Calcium 8.2 mg/dL (8.4-10.2); Hemolysis Index 5
[2019-04-17] MEDS: MORPHINE 2 MG/1 ML INJ IV PRN ×2 (05:26→21:27)
[2019-04-17] MEDS: MULTIVITAMINS,THER W-MINERALS TAB PO SCH (09:55)
[2019-04-17] MEDS: LOSARTAN 50 MG TAB PO SCH (09:55)
[2019-04-17] MEDS: amLODIPine 10 MG TAB PO SCH (09:55)
[2019-04-17] MEDS: FERROUS SULFATE 325 MG TAB PO SCH (09:55)
[2019-04-17] MEDS: hydroCHLOROthiazide 12.5 MG CAP PO SCH (09:55)
[2019-04-17] MEDS: DOCUSATE SODIUM 100 MG CAP PO SCH ×2 (09:55→21:26)
[2019-04-17] MEDS: ENOXAPARIN 40 MG/0.4 ML INJ SUB-Q SCH (09:56)
[2019-04-17] MEDS: CALCIUM CARB/VIT D3/MINERALS 600 MG/800 UNITS TAB PO SCH ×2 (09:56→21:26)
[2019-04-17] MEDS: INSULIN NPH/REGULAR 70/30 INJ SUB-Q SCH ×2 (09:57→18:52)
[2019-04-17] MEDS: INSULIN REGULAR, HUMAN 100 UNITS/1 ML SUB-Q SCH ×4 (09:59→21:37)
--- NOTE | 2019-04-17 13:00 | Progress Note ---
Assessment and Plan Assessment and plan: 78-year-old female with past medical history diabetes mellitus type 2 and hypertension who presents status post fall from her bed with complaints of right hip pain. X-ray revealed severely comminuted and moderately displaced fracture of the distal femoral metadiaphysis. - Right hip fracture. Status post IM nail, of right femur Continue Pain control. PT - Diabetes mellitus type II. Accu-Checks and sliding scale regular insulin. Continue Novolin units twice a day. - Hypertension. Continue Norvasc, losartan and hydrochlorothiazide. - Anemia, hemoglobin drop. Transfused 1 unit PRBCs. -DVT prophylaxis with SCDs and Lovenox History Interval history: less pain right hip Hospitalist Physical - Physical exam Narrative exam: Gen: Not in acute distress, Lying in bed, morbidly obese HEENT: Normocephalic, atraumatic Neck: supple, no JVD Heart: S1 and S2 reg, no murmurs, rubs or gallop Lungs: Clear to auscultation, no rhonchi, no wheeze Abd: soft, non tender, non distended, normal BS, Ext: No edema, no clubbing, no cyanosis, mild tender right hip, dressing over right hip Neuro: Awake, alert, oriented X 3, no focal neurological signs - Constitutional Vitals: Temp Pulse Resp BP Pulse Ox 99.3 F 97 H 18 123/51 96 04/17/19 12:16 04/17/19 12:16 04/17/19 12:16 04/17/19 12:16 04/17/19 12:16 General appearance: Present: no acute distress, well-nourished Results - Labs CBC & Chem 7: 04/16/19 13:35 04/16/19 13:35 Labs: Laboratory Last Values WBC 4.7 K/mm3 (4.5-11.0) 04/16/19 13:35 RBC 3.03 M/mm3 (3.65-5.03) L 04/16/19 13:35 Hgb 8.3 gm/dl (10.1-14.3) L 04/16/19 13:35 Hct 24.5 % (30.3-42.9) L 04/16/19 13:35 MCV 81 fl (79-97) 04/16/19 13:35 MCH 27 pg (28-32) L 04/16/19 13:35 MCHC 34 % (30-34) 04/16/19 13:35 RDW 16.0 % (13.2-15.2) H 04/16/19 13:35 Plt Count 147 K/mm3 (140-440) 04/16/19 13:35 Lymph % (Auto) 11.0 % (13.4-35.0) L 04/15/19 04:14 [place] % (Auto) 7.2 % (0.0-7.3) 04/15/19 04:14 Eos % (Auto) 0.5 % (0.0-4.3) 04/15/19 04:14 Baso % (Auto) 0.3 % (0.0-1.8) 04/15/19 04:14 Lymph # 0.5 K/mm3 (1.2-5.4) L 04/15/19 04:14 [place] # 0.4 K/mm3 (0.0-0.8) 04/15/19 04:14 Eos # 0.0 K/mm3 (0.0-0.4) 04/15/19 04:14 Baso # 0.0 K/mm3 (0.0-0.1) 04/15/19 04:14 Seg Neutrophils % 81.0 % (40.0-70.0) H 04/15/19 04:14 Seg Neutrophils # 4.0 K/mm3 (1.8-7.7) 04/15/19 04:14 PT 12.8 Sec. (12.2-14.9) 04/13/19 03:05 INR 0.99 (0.87-1.13) 04/13/19 03:05 APTT 27.4 Sec. (24.2-36.6) 04/13/19 03:05 Sodium 134 mmol/L (137-145) L 04/16/19 13:35 Potassium 3.5 mmol/L (3.6-5.0) L 04/16/19 13:35 Chloride 100.2 mmol/L (98-107) 04/16/19 13:35 Carbon Dioxide 26 mmol/L (22-30) 04/16/19 13:35 Anion Gap 11 mmol/L 04/16/19 13:35 BUN 16 mg/dL (7-17) 04/16/19 13:35 Creatinine 0.6 mg/dL (0.7-1.2) L 04/16/19 13:35 Estimated GFR > 60 ml/min 04/16/19 13:35 BUN/Creatinine Ratio 27 % 04/16/19 13:35 Glucose 225 mg/dL (65-100) H 04/16/19 13:35 POC Glucose 404 (70-105) H 04/17/19 11:32 Calcium 8.2 mg/dL (8.4-10.2) L 04/16/19 13:35 Urine Color Yellow (Yellow) 04/13/19 12:00 Urine Turbidity Clear (Clear) 04/13/19 12:00 Urine pH 5.0 (5.0-7.0) 04/13/19 12:00 Ur Specific [place] 1.014 (1.003-1.030) 04/13/19 12:00 Urine Protein <15 mg/dl mg/dL (Negative) 04/13/19 12:00 Urine Glucose (UA) Neg mg/dL (Negative) 04/13/19 12:00 Urine Ketones 20 mg/dL (Negative) 04/13/19 12:00 Urine Blood Neg (Negative) 04/13/19 12:00 Urine Nitrite Neg (Negative) 04/13/19 12:00 Urine Bilirubin Neg (Negative) 04/13/19 12:00 Urine Urobilinogen < 2.0 mg/dL (<2.0) 04/13/19 12:00 Ur Leukocyte Esterase Neg (Negative) 04/13/19 12:00 Urine WBC (Auto) 1.0 /HPF (0.0-6.0) 04/13/19 12:00 Urine RBC (Auto) 3.0 /HPF (0.0-6.0) 04/13/19 12:00 U Epithel Cells (Auto) < 1.0 /HPF (0-13.0) 04/13/19 12:00 Urine Mucus Few /HPF 04/13/19 12:00 Blood Type B NEGATIVE 04/15/19 11:11 Antibody Screen Negative 04/15/19 11:11 Crossmatch See Detail 04/15/19 11:11 Active Medications - Current Medications Current Medications: Generic Name Dose Route Start Last Admin Trade Name Freq PRN Reason Stop Dose Admin Acetaminophen 650 mg 04/13/19 10:54 04/16/19 22:46 Tylenol PO 650 mg Q4H PRN Administration Pain MILD(1-3)/Fever >100.5/[place] Amlodipine Besylate 10 mg 04/14/19 10:00 04/17/19 09:55 Norvasc PO 10 mg QDAY PATTI Administration Dextrose 50 ml 04/16/19 02:47 D50w (25gm) Syringe IV PRN PRN Hypoglycemia Docusate Sodium 100 mg 04/15/19 22:00 04/17/19 09:55 Colace PO 100 mg BID PATTI Administration Enoxaparin Sodium 40 mg 04/15/19 10:00 04/17/19 09:56 Lovenox SUB-Q 40 mg QDAY PATTI Administration Ferrous Sulfate 325 mg 04/13/19 16:00 04/17/19 09:55 Feosol PO 325 mg DAILY PATTI Administration Hydrochlorothiazide 12.5 mg 04/14/19 10:00 04/17/19 09:55 Hctz PO 12.5 mg QDAY PATTI Administration Sodium Chloride 1,000 mls @ 42 mls/hr 04/13/19 11:00 04/16/19 05:25 Nacl 0.9% 1000 Ml IV Infused DIRECT PATTI Infusion Insulin Human Isoph/Insulin Regular 10 unit 04/14/19 17:00 04/17/19 09:57 Humulin 70/30 SUB-Q 10 unit BIDDIAB PATTI Administration Insulin Human Regular 0 units 04/16/19 07:30 04/17/19 12:26 Humulin R SUB-Q 8 units ACHS PATTI Administration Protocol Losartan Potassium 100 mg 04/14/19 10:00 04/17/19 09:55 Cozaar PO 100 mg QDAY PATTI Administration Morphine Sulfate 2 mg 04/13/19 10:54 04/17/19 05:26 Morphine IV 2 mg Q4H PRN Administration Pain, Moderate (4-6) Multivitamins/Minerals 1 each 04/13/19 22:00 04/17/19 09:56 Caltrate Plus PO 1 each BID PATTI Administration Multivitamins/Minerals 1 each 04/14/19 12:00 04/17/19 09:55 Theragran-M Tab PO 1 each QDAY PATTI Administration Ondansetron HCl 4 mg 04/13/19 10:54 04/16/19 02:31 Zofran IV 4 mg Q8H PRN Administration Nausea And Vomiting Sodium Chloride 10 ml 04/13/19 22:00 04/17/19 10:00 Sodium Chloride Flush Syringe 10 Ml IV 10 ml BID PATTI Administration Sodium Chloride 10 ml 04/13/19 10:54 04/13/19 15:07 Sodium Chloride Flush Syringe 10 Ml IV 10 ml PRN PRN Administration LINE FLUSH
[2019-04-17] MEDS: ACETAMINOPHEN 325 MG TAB PO PRN (20:51)
[2019-04-18] MEDS: MORPHINE 2 MG/1 ML INJ IV PRN ×2 (04:47→21:18)
[2019-04-18] MEDS: ACETAMINOPHEN 325 MG TAB PO PRN (06:44)
[2019-04-18] MEDS: INSULIN REGULAR, HUMAN 100 UNITS/1 ML SUB-Q SCH ×4 (08:55→21:41)
[2019-04-18] MEDS: INSULIN NPH/REGULAR 70/30 INJ SUB-Q SCH ×2 (08:55→16:34)
[2019-04-18] MEDS: DOCUSATE SODIUM 100 MG CAP PO SCH ×2 (09:03→21:19)
[2019-04-18] MEDS: CALCIUM CARB/VIT D3/MINERALS 600 MG/800 UNITS TAB PO SCH ×2 (09:03→21:19)
[2019-04-18] MEDS: FERROUS SULFATE 325 MG TAB PO SCH (09:03)
[2019-04-18] MEDS: hydroCHLOROthiazide 12.5 MG CAP PO SCH (09:03)
[2019-04-18] MEDS: MULTIVITAMINS,THER W-MINERALS TAB PO SCH (09:04)
[2019-04-18] MEDS: ENOXAPARIN 40 MG/0.4 ML INJ SUB-Q SCH (09:04)
--- NOTE | 2019-04-18 11:44 | Progress Note ---
Assessment and Plan Assessment and plan: 78-year-old female with past medical history diabetes mellitus type 2 and hypertension who presents status post fall from her bed with complaints of right hip pain. X-ray revealed severely comminuted and moderately displaced fracture of the distal femoral metadiaphysis. - Right hip fracture. Status post IM nail, of right femur Continue Pain control. PT - Diabetes mellitus type II. Accu-Checks and sliding scale regular insulin. Continue Novolin units twice a day. - Hypertension. Continue Norvasc, losartan and hydrochlorothiazide. - Anemia, hemoglobin drop. Transfused 1 unit PRBCs. -DVT prophylaxis with SCDs and Lovenox Awaiting placement to SNF History Interval history: less pain right hip Hospitalist Physical - Physical exam Narrative exam: Gen: Not in acute distress, Lying in bed, morbidly obese HEENT: Normocephalic, atraumatic Neck: supple, no JVD Heart: S1 and S2 reg, no murmurs, rubs or gallop Lungs: Clear to auscultation, no rhonchi, no wheeze Abd: soft, non tender, non distended, normal BS, Ext: No edema, no clubbing, no cyanosis, mild tender right hip, dressing over right hip Neuro: Awake, alert, oriented X 3, no focal neurological signs - Constitutional Vitals: Temp Pulse Resp BP Pulse Ox 99.3 F 85 18 125/48 99 04/18/19 07:14 04/18/19 07:14 04/18/19 07:14 04/18/19 07:14 04/18/19 07:14 General appearance: Present: no acute distress, obese Results - Labs CBC & Chem 7: 04/16/19 13:35 04/16/19 13:35 Labs: Laboratory Last Values WBC 4.7 K/mm3 (4.5-11.0) 04/16/19 13:35 RBC 3.03 M/mm3 (3.65-5.03) L 04/16/19 13:35 Hgb 8.3 gm/dl (10.1-14.3) L 04/16/19 13:35 Hct 24.5 % (30.3-42.9) L 04/16/19 13:35 MCV 81 fl (79-97) 04/16/19 13:35 MCH 27 pg (28-32) L 04/16/19 13:35 MCHC 34 % (30-34) 04/16/19 13:35 RDW 16.0 % (13.2-15.2) H 04/16/19 13:35 Plt Count 147 K/mm3 (140-440) 04/16/19 13:35 Lymph % (Auto) 11.0 % (13.4-35.0) L 04/15/19 04:14 [place] % (Auto) 7.2 % (0.0-7.3) 04/15/19 04:14 Eos % (Auto) 0.5 % (0.0-4.3) 04/15/19 04:14 Baso % (Auto) 0.3 % (0.0-1.8) 04/15/19 04:14 Lymph # 0.5 K/mm3 (1.2-5.4) L 04/15/19 04:14 Love # 0.4 K/mm3 (0.0-0.8) 04/15/19 04:14 Eos # 0.0 K/mm3 (0.0-0.4) 04/15/19 04:14 Baso # 0.0 K/mm3 (0.0-0.1) 04/15/19 04:14 Seg Neutrophils % 81.0 % (40.0-70.0) H 04/15/19 04:14 Seg Neutrophils # 4.0 K/mm3 (1.8-7.7) 04/15/19 04:14 PT 12.8 Sec. (12.2-14.9) 04/13/19 03:05 INR 0.99 (0.87-1.13) 04/13/19 03:05 APTT 27.4 Sec. (24.2-36.6) 04/13/19 03:05 Sodium 134 mmol/L (137-145) L 04/16/19 13:35 Potassium 3.5 mmol/L (3.6-5.0) L 04/16/19 13:35 Chloride 100.2 mmol/L (98-107) 04/16/19 13:35 Carbon Dioxide 26 mmol/L (22-30) 04/16/19 13:35 Anion Gap 11 mmol/L 04/16/19 13:35 BUN 16 mg/dL (7-17) 04/16/19 13:35 Creatinine 0.6 mg/dL (0.7-1.2) L 04/16/19 13:35 Estimated GFR > 60 ml/min 04/16/19 13:35 BUN/Creatinine Ratio 27 % 04/16/19 13:35 Glucose 225 mg/dL (65-100) H 04/16/19 13:35 POC Glucose 223 (70-105) H 04/18/19 07:24 Calcium 8.2 mg/dL (8.4-10.2) L 04/16/19 13:35 Urine Color Yellow (Yellow) 04/13/19 12:00 Urine Turbidity Clear (Clear) 04/13/19 12:00 Urine pH 5.0 (5.0-7.0) 04/13/19 12:00 Ur Specific [place] 1.014 (1.003-1.030) 04/13/19 12:00 Urine Protein <15 mg/dl mg/dL (Negative) 04/13/19 12:00 Urine Glucose (UA) Neg mg/dL (Negative) 04/13/19 12:00 Urine Ketones 20 mg/dL (Negative) 04/13/19 12:00 Urine Blood Neg (Negative) 04/13/19 12:00 Urine Nitrite Neg (Negative) 04/13/19 12:00 Urine Bilirubin Neg (Negative) 04/13/19 12:00 Urine Urobilinogen < 2.0 mg/dL (<2.0) 04/13/19 12:00 Ur Leukocyte Esterase Neg (Negative) 04/13/19 12:00 Urine WBC (Auto) 1.0 /HPF (0.0-6.0) 04/13/19 12:00 Urine RBC (Auto) 3.0 /HPF (0.0-6.0) 04/13/19 12:00 U Epithel Cells (Auto) < 1.0 /HPF (0-13.0) 04/13/19 12:00 Urine Mucus Few /HPF 04/13/19 12:00 Blood Type B NEGATIVE 04/15/19 11:11 Antibody Screen Negative 04/15/19 11:11 Crossmatch See Detail 04/15/19 11:11 Active Medications - Current Medications Current Medications: Generic Name Dose Route Start Last Admin Trade Name Freq PRN Reason Stop Dose Admin Acetaminophen 650 mg 04/13/19 10:54 04/18/19 06:44 Tylenol PO 650 mg Q4H PRN Administration Pain MILD(1-3)/Fever >100.5/[place] Amlodipine Besylate 10 mg 04/14/19 10:00 04/17/19 09:55 Norvasc PO 10 mg QDAY PATTI Administration Dextrose 50 ml 04/16/19 02:47 D50w (25gm) Syringe IV PRN PRN Hypoglycemia Docusate Sodium 100 mg 04/15/19 22:00 04/18/19 09:03 Colace PO 100 mg BID PATTI Administration Enoxaparin Sodium 40 mg 04/15/19 10:00 04/18/19 09:04 Lovenox SUB-Q 40 mg QDAY PATTI Administration Ferrous Sulfate 325 mg 04/13/19 16:00 04/18/19 09:03 Feosol PO 325 mg DAILY PATTI Administration Hydrochlorothiazide 12.5 mg 04/14/19 10:00 04/18/19 09:03 Hctz PO 12.5 mg QDAY PATTI Administration Sodium Chloride 1,000 mls @ 42 mls/hr 04/13/19 11:00 04/16/19 05:25 Nacl 0.9% 1000 Ml IV Infused DIRECT PATTI Infusion Insulin Human Isoph/Insulin Regular 10 unit 04/14/19 17:00 04/18/19 08:55 Humulin 70/30 SUB-Q 10 unit BIDDIAB PATTI Administration Insulin Human Regular 0 units 04/16/19 07:30 04/18/19 08:55 Humulin R SUB-Q 3 units ACHS PATTI Administration Protocol Losartan Potassium 100 mg 04/14/19 10:00 04/17/19 09:55 Cozaar PO 100 mg QDAY PATTI Administration Morphine Sulfate 2 mg 04/13/19 10:54 04/18/19 04:47 Morphine IV 2 mg Q4H PRN Administration Pain, Moderate (4-6) Multivitamins/Minerals 1 each 04/13/19 22:00 04/18/19 09:03 Caltrate Plus PO 1 each BID PATTI Administration Multivitamins/Minerals 1 each 04/14/19 12:00 04/18/19 09:04 Theragran-M Tab PO 1 each QDAY PATTI Administration Ondansetron HCl 4 mg 04/13/19 10:54 04/16/19 02:31 Zofran IV 4 mg Q8H PRN Administration Nausea And Vomiting Sodium Chloride 10 ml 04/13/19 22:00 04/18/19 09:05 Sodium Chloride Flush Syringe 10 Ml IV 10 ml BID PATTI Administration Sodium Chloride 10 ml 04/13/19 10:54 04/13/19 15:07 Sodium Chloride Flush Syringe 10 Ml IV 10 ml PRN PRN Administration LINE FLUSH
[2019-04-18] MEDS: LOSARTAN 50 MG TAB PO SCH (13:12)
[2019-04-18] MEDS: amLODIPine 10 MG TAB PO SCH (13:13)
[2019-04-18] MEDS ORDERED: MAGNESIUM HYDROXIDE (MOM) ORAL LIQD UDC PO ONE (19:58)
[2019-04-18] MEDS ORDERED: POLYETHYLENE GLYCOL 3350 17 GM POWDER PO PRN (19:58)
[2019-04-19] MEDS: MORPHINE 2 MG/1 ML INJ IV PRN ×4 (02:28→22:25)
[2019-04-19 07:53] LABS: Hematocrit 25.4 % (30.3-42.9); Hemoglobin 8.3 gm/dl (10.1-14.3); Mean Corpuscular HGB Conc 33 % (30-34); Mean Corpuscular Volume 85 fl (79-97); Red Cell Distribution Width 16.7 % (13.2-15.2)
[2019-04-19] MEDS: INSULIN NPH/REGULAR 70/30 INJ SUB-Q SCH ×2 (07:55→18:03)
[2019-04-19] MEDS: INSULIN REGULAR, HUMAN 100 UNITS/1 ML SUB-Q SCH ×4 (07:56→22:00)
[2019-04-19 08:16] LABS: BUN/Creatinine Ratio 22; Blood Urea Nitrogen 13 mg/dL (7-17); Calcium 8.3 mg/dL (8.4-10.2); Hemolysis Index 7
[2019-04-19] MEDS: amLODIPine 10 MG TAB PO SCH (10:05)
[2019-04-19] MEDS: ENOXAPARIN 40 MG/0.4 ML INJ SUB-Q SCH (10:05)
[2019-04-19] MEDS: DOCUSATE SODIUM 100 MG CAP PO SCH ×2 (10:05→22:25)
[2019-04-19] MEDS: LOSARTAN 50 MG TAB PO SCH (10:05)
[2019-04-19] MEDS: FERROUS SULFATE 325 MG TAB PO SCH (10:05)
[2019-04-19] MEDS: MULTIVITAMINS,THER W-MINERALS TAB PO SCH (10:05)
[2019-04-19] MEDS: hydroCHLOROthiazide 12.5 MG CAP PO SCH (10:06)
[2019-04-19 10:31] LABS: Platelet Count 204 K/mm3 (140-440)
[2019-04-19] MEDS: CALCIUM CARB/VIT D3/MINERALS 600 MG/800 UNITS TAB PO SCH ×2 (13:24→22:24)
[2019-04-19] MEDS ORDERED: SODIUM CHLORIDE 0.9% 1000 ML 1,000 ML IV SCH (16:00)
--- NOTE | 2019-04-19 16:33 | Progress Note ---
Assessment and Plan Assessment and plan: 78-year-old female with past medical history diabetes mellitus type 2 and hypertension who presents status post fall from her bed with complaints of right hip pain. X-ray revealed severely comminuted and moderately displaced fracture of the distal femoral metadiaphysis. - Right hip fracture. Status post IM nail, of right femur Continue Pain control. PT - Diabetes mellitus type II, UNCONTROLLED Increase Novolin 70/30 to 16 units twice a day. start NS - Hypertension. Continue Norvasc, losartan and hydrochlorothiazide. - Anemia, hemoglobin drop. Transfused 1 unit PRBCs. -DVT prophylaxis with SCDs and Lovenox was asked by wind field manager that Insurance denied SNF placement and requested Peer to peer. I called and discussed with physician making a case that she needs SNF placement, however Physician still states patient denied SNF placement. History Interval history: less pain right hip Hospitalist Physical - Physical exam Narrative exam: Gen: Not in acute distress, Lying in bed, morbidly obese HEENT: Normocephalic, atraumatic Neck: supple, no JVD Heart: S1 and S2 reg, no murmurs, rubs or gallop Lungs: Clear to auscultation, no rhonchi, no wheeze Abd: soft, non tender, non distended, normal BS, Ext: No edema, no clubbing, no cyanosis, mild tender right hip, dressing over right hip Neuro: Awake, alert, oriented X 3, no focal neurological signs - Constitutional Vitals: Temp Pulse Resp BP Pulse Ox 99.0 F 86 20 135/49 97 04/19/19 12:41 04/19/19 12:41 04/19/19 12:41 04/19/19 12:41 04/19/19 12:41 General appearance: Present: no acute distress, obese Results - Labs CBC & Chem 7: 04/19/19 07:33 04/19/19 07:33 Labs: Laboratory Last Values WBC 4.7 K/mm3 (4.5-11.0) 04/19/19 07:33 RBC 3.00 M/mm3 (3.65-5.03) L 04/19/19 07:33 Hgb 8.3 gm/dl (10.1-14.3) L 04/19/19 07:33 Hct 25.4 % (30.3-42.9) L 04/19/19 07:33 MCV 85 fl (79-97) 04/19/19 07:33 MCH 28 pg (28-32) 04/19/19 07:33 MCHC 33 % (30-34) 04/19/19 07:33 RDW 16.7 % (13.2-15.2) H 04/19/19 07:33 Plt Count 204 K/mm3 (140-440) 04/19/19 07:33 Lymph % (Auto) 11.0 % (13.4-35.0) L 04/15/19 04:14 [place] % (Auto) 7.2 % (0.0-7.3) 04/15/19 04:14 Eos % (Auto) 0.5 % (0.0-4.3) 04/15/19 04:14 Baso % (Auto) 0.3 % (0.0-1.8) 04/15/19 04:14 Lymph # 0.5 K/mm3 (1.2-5.4) L 04/15/19 04:14 [place] # 0.4 K/mm3 (0.0-0.8) 04/15/19 04:14 Eos # 0.0 K/mm3 (0.0-0.4) 04/15/19 04:14 Baso # 0.0 K/mm3 (0.0-0.1) 04/15/19 04:14 Seg Neutrophils % 81.0 % (40.0-70.0) H 04/15/19 04:14 Seg Neutrophils # 4.0 K/mm3 (1.8-7.7) 04/15/19 04:14 PT 12.8 Sec. (12.2-14.9) 04/13/19 03:05 INR 0.99 (0.87-1.13) 04/13/19 03:05 APTT 27.4 Sec. (24.2-36.6) 04/13/19 03:05 Sodium 134 mmol/L (137-145) L 04/19/19 07:33 Potassium 4.6 mmol/L (3.6-5.0) D 04/19/19 07:33 Chloride 92.2 mmol/L (98-107) L 04/19/19 07:33 Carbon Dioxide 21 mmol/L (22-30) L 04/19/19 07:33 Anion Gap 25 mmol/L 04/19/19 07:33 BUN 13 mg/dL (7-17) 04/19/19 07:33 Creatinine 0.6 mg/dL (0.7-1.2) L 04/19/19 07:33 Estimated GFR > 60 ml/min 04/19/19 07:33 BUN/Creatinine Ratio 22 % 04/19/19 07:33 Glucose 479 mg/dL (65-100) H 04/19/19 07:33 POC Glucose 206 (70-105) H 04/19/19 12:14 Hemoglobin A1c 6.3 % (4-6) H 04/19/19 07:33 Calcium 8.3 mg/dL (8.4-10.2) L 04/19/19 07:33 Urine Color Yellow (Yellow) 04/13/19 12:00 Urine Turbidity Clear (Clear) 04/13/19 12:00 Urine pH 5.0 (5.0-7.0) 04/13/19 12:00 Ur Specific [place] 1.014 (1.003-1.030) 04/13/19 12:00 Urine Protein <15 mg/dl mg/dL (Negative) 04/13/19 12:00 Urine Glucose (UA) Neg mg/dL (Negative) 04/13/19 12:00 Urine Ketones 20 mg/dL (Negative) 04/13/19 12:00 Urine Blood Neg (Negative) 04/13/19 12:00 Urine Nitrite Neg (Negative) 04/13/19 12:00 Urine Bilirubin Neg (Negative) 04/13/19 12:00 Urine Urobilinogen < 2.0 mg/dL (<2.0) 04/13/19 12:00 Ur Leukocyte Esterase Neg (Negative) 04/13/19 12:00 Urine WBC (Auto) 1.0 /HPF (0.0-6.0) 04/13/19 12:00 Urine RBC (Auto) 3.0 /HPF (0.0-6.0) 04/13/19 12:00 U Epithel Cells (Auto) < 1.0 /HPF (0-13.0) 04/13/19 12:00 Urine Mucus Few /HPF 04/13/19 12:00 Blood Type B NEGATIVE 04/15/19 11:11 Antibody Screen Negative 04/15/19 11:11 Crossmatch See Detail 04/15/19 11:11 Active Medications - Current Medications Current Medications: Generic Name Dose Route Start Last Admin Trade Name Freq PRN Reason Stop Dose Admin Acetaminophen 650 mg 04/13/19 10:54 04/18/19 06:44 Tylenol PO 650 mg Q4H PRN Administration Pain MILD(1-3)/Fever >100.5/[place] Amlodipine Besylate 10 mg 04/14/19 10:00 04/19/19 10:05 Norvasc PO 10 mg QDAY PATTI Administration Dextrose 50 ml 04/16/19 02:47 D50w (25gm) Syringe IV PRN PRN Hypoglycemia Docusate Sodium 100 mg 04/15/19 22:00 04/19/19 10:05 Colace PO 100 mg BID PATTI Administration Enoxaparin Sodium 40 mg 04/15/19 10:00 04/19/19 10:05 Lovenox SUB-Q 40 mg QDAY PATTI Administration Ferrous Sulfate 325 mg 04/13/19 16:00 04/19/19 10:05 Feosol PO 325 mg DAILY PATTI Administration Hydrochlorothiazide 12.5 mg 04/14/19 10:00 04/19/19 10:06 Hctz PO 12.5 mg QDAY PATTI Administration Sodium Chloride 1,000 mls @ 75 mls/hr 04/19/19 16:00 Nacl 0.9% 1000 Ml IV DIRECT PATTI Insulin Human Isoph/Insulin Regular 16 unit 04/19/19 17:00 Humulin 70/30 SUB-Q BIDDIAB PATTI Insulin Human Regular 0 units 04/16/19 07:30 04/19/19 12:17 Humulin R SUB-Q 3 units ACHS PATTI Administration Protocol Losartan Potassium 100 mg 04/14/19 10:00 04/19/19 10:05 Cozaar PO 100 mg QDAY PATTI Administration Morphine Sulfate 2 mg 04/13/19 10:54 04/19/19 13:27 Morphine IV 2 mg Q4H PRN Administration Pain, Moderate (4-6) Multivitamins/Minerals 1 each 04/13/19 22:00 04/19/19 13:24 Caltrate Plus PO 1 each BID PATTI Administration Multivitamins/Minerals 1 each 04/14/19 12:00 04/19/19 10:05 Theragran-M Tab PO 1 each QDAY PATTI Administration Ondansetron HCl 4 mg 04/13/19 10:54 04/16/19 02:31 Zofran IV 4 mg Q8H PRN Administration Nausea And Vomiting Polyethylene Glycol 17 gm 04/18/19 19:58 04/19/19 02:37 Miralax 3350 PO 17 gm QDAY PRN Administration Constipation Sodium Chloride 10 ml 04/13/19 22:00 04/19/19 10:06 Sodium Chloride Flush Syringe 10 Ml IV 10 ml BID PATTI Administration Sodium Chloride 10 ml 04/13/19 10:54 04/13/19 15:07 Sodium Chloride Flush Syringe 10 Ml IV 10 ml PRN PRN Administration LINE FLUSH Nutrition/Malnutrition Assess - Dietary Evaluation Nutrition/Malnutrition Findings: Nutrition Notes Start: 04/19/19 10:36 Freq: Status: Active Protocol: Document 04/19/19 10:36 RS (Rec: 04/19/19 11:19 RS [id number]) Co-Sign 04/19/19 10:36 LM Nutrition Notes Need for Assessment generated from: LOS Initial or Follow up Assessment Current Diagnosis Diabetes,Hypertension Other Pertinent Diagnosis r Hip fx, anemia Current Diet Consistent CHO Labs/Tests Glu: 479 A1c: 6.3 Pertinent Medications reviewed Height 5 ft 6 in Weight 55.954 kg Usual Body Weight 56.8 kg [place] Body Weight (kg) 59.09 BMI 19.9 Intake Prior to Admission Good Weight Status Appropriate Subjective/Other Information Pt reports fair appetite currently and good appetite PODIATRIC AIDE. Observed 25% of breakfast tray consumed, pt only ate milk and cereal. No reports of N/V/D. Briefly disucssed hyperglycemic state with pt. Burn Absent Trauma Absent GI Symptoms None Food Allergy No Current % PO Poor (25-49%) Minimum of two criteria No physical signs of malnutrition #1 Nutrition Diagnosis Inadequate oral intake Etiology poor appetite d/t r Hip fx As Evidenced by Signs and Symptoms pt eating 25% of meals Is patient on ventilator? No Is Patient Ambulatory and/or Out of Bed Yes REE-([place]-St. Jeor-ambulatory/OOB) [ 8526.677 NUTR.MSJOOB] Kcal/Kg value to use for calculation 30 Approximate Energy Requirements Using 1679 kcal/Kg Calculation Used for Recommendations Kcal/kg Additional Notes PRO needs (1-1.2g/kg): 56-67g/day Fluid: 1mL/kcal Nutrition Intervention Change Diet Order: continue diet Add Supplement/Snack (indicate name/kcal Glucerna [place] daily /protein ) Provides kCal: 220 Provides Protein (gm) 10 Goal #1 Meet 75% of kcal/PRO needs via PO/ONS intake Anticipated Discharge Needs: Consistent CHO diet Follow-Up By: 04/22/19 Additional Comments F/U for PO intake and ONS tolerance
[2019-04-20] MEDS: MORPHINE 2 MG/1 ML INJ IV PRN (03:53)
[2019-04-20 07:00] LABS: BUN/Creatinine Ratio 28; Blood Urea Nitrogen 17 mg/dL (7-17); Calcium 8.5 mg/dL (8.4-10.2)
[2019-04-20 07:01] LABS: Hemolysis Index 1
[2019-04-20] MEDS: INSULIN NPH/REGULAR 70/30 INJ SUB-Q SCH ×2 (09:29→17:12)
[2019-04-20] MEDS: hydroCHLOROthiazide 12.5 MG CAP PO SCH (09:30)
[2019-04-20] MEDS: ENOXAPARIN 40 MG/0.4 ML INJ SUB-Q SCH (09:30)
[2019-04-20] MEDS: FERROUS SULFATE 325 MG TAB PO SCH (09:30)
[2019-04-20] MEDS: MULTIVITAMINS,THER W-MINERALS TAB PO SCH (09:30)
[2019-04-20] MEDS: INSULIN REGULAR, HUMAN 100 UNITS/1 ML SUB-Q SCH ×3 (09:30→17:12)
[2019-04-20] MEDS: CALCIUM CARB/VIT D3/MINERALS 600 MG/800 UNITS TAB PO SCH (09:30)
[2019-04-20 11:29] VITALS: BP 119/53
[2019-04-20] MEDS: LOSARTAN 50 MG TAB PO SCH (11:29)
[2019-04-20] MEDS: amLODIPine 10 MG TAB PO SCH (11:29)
[2019-04-20] MEDS: DOCUSATE SODIUM 100 MG CAP PO SCH (12:37)
--- NOTE | 2019-04-20 12:59 | Discharge Summary ---
Providers - Providers Date of Admission: 04/13/19 10:04 Date of discharge: 04/20/19 Attending physician: SABRINA SOLIS 04/13/19 10:04 Consult to Physician [CONS] Urgent Comment: Consulting Provider: ESTEBAN CROOKS Physician Instructions: Reason For Exam: femur fx 04/14/19 11:10 Consult to Case Management [CONS] Routine Services Needed at Discharge: Home Health Services DME Equipment Physical Therapy Notified:: cm notified 04/14/19 11:13 Physical Therapy Evaluation and Treat [CONS] Routine Comment: Reason For Exam: postop evaluation Weight bearing status?: Partial wt bearing Assistive devices?: Yes If so list: Walker 04/16/19 13:30 Consult Acute Rehabilitation [CONS] Routine Consulting Provider: Physician Instructions: Reason For Exam: IRU Evaluation [facility] Hospital[facility] Condition: Fair Hospital course: Patient is 78-year-old female with past medical history diabetes mellitus type 2 and hypertension who presents status post fall from her bed with complaints of right hip pain. X-ray revealed severely comminuted and moderately displaced fracture of the distal femoral metadiaphysis. She was admitted and had closed reduction and intramedullary nail placement by Dr. Crooks, Ortho on 04/14/19. Physical therapy evaluated and recommended SNF placement but was denied by Insurance, so was discharged home with home health on 04/20/19. - Right hip fracture. Status post IM nail, of right femur Continue Pain control. PT - Diabetes mellitus type II, UNCONTROLLED Increased Novolin 70/30 to 16 units twice a day. - Hypertension. Continued Norvasc, losartan and hydrochlorothiazide. - Anemia, hemoglobin drop. Transfused 1 unit PRBCs. was asked by health care manager that Insurance denied SNF placement and requested Peer to peer. I called and discussed with physician making a case that she needs SNF placement, however Physician still states patient denied SNF placement. Total time placed on discharge, 34 mins Disposition: [id number] HOME UNDER HOME HLTH - Discharge Diagnoses (1) Hypertension Status: Acute (2) Diabetes mellitus type 2 in nonobese Status: Acute (3) Femur fracture, right Status: Acute Qualifiers: Encounter type: initial encounter Femur location: shaft Fracture type: closed Fracture morphology: comminuted Fracture alignment: displaced Quali fied Code(s): S72.351A - Displaced comminuted fracture of shaft of right femur, initial encounter for closed fracture (4) Anemia Status: Chronic (5) Hip fracture, right Status: Acute Core Measure Documentation - Palliative Care Palliative Care/ Comfort Measures: Not Applicable - Core Measures Any of the following diagnoses?: none Exam - Constitutional Vitals: Temp Pulse Resp BP Pulse Ox 98.0 F 86 18 119/53 98 04/20/19 11:04 04/20/19 11:04 04/20/19 11:04 04/20/19 11:04 04/20/19 11:04 Plan Activity: other Diet: low fat, low cholesterol, diabetic Plan of Treatment: 1.Follow up with PCP in 1 week. 2.Follow up with Boyd Mcnulty in 1-2 weeks [facility] [place] [place] [place] [Primary Care Provider] - 3-5 Days Prescriptions: Apixaban [Eliquis] 2.5 mg PO BID 35 Days #70 tablet traMADol [Ultram 50 MG tab] 50 mg PO Q6HR PRN #20 tablet PRN Reason: Pain
== END 2019-04-20 17:45 | disposition home health service (06) | DRG 481 ==
LOC: ED 02:20 → 2B-ACE 10:04 → 3B-SURG 04-14 11:50
PROVIDERS: ADMIT Hospitalist; ATTEND Internal Medicine
PROC: 0QSB36Z Reposition Right Lower Femur with Intramedullary Internal Fixation Device, Percutaneous Approach (ICD-10-PCS; principal; 2019-04-14)
PROC: 30243N1 Transfusion of Nonautologous Red Blood Cells into Central Vein, Percutaneous Approach (ICD-10-PCS; 2019-04-15)
DX: S72.491A Other fracture of lower end of right femur, initial encounter for closed fracture (principal); D62 Acute posthemorrhagic anemia; W06.XXXA Fall from bed, initial encounter; I10 Essential (primary) hypertension; E11.8 Type 2 diabetes mellitus with unspecified complications; M81.0 Age-related osteoporosis without current pathological fracture; M19.90 Unspecified osteoarthritis, unspecified site; F03.90 Unspecified dementia, unspecified severity, without behavioral disturbance, psychotic disturbance, mood disturbance, and anxiety; Z90.49 Acquired absence of other specified parts of digestive tract; Z88.5 Allergy status to narcotic agent; Z79.899 Other long term (current) drug therapy; Z79.4 Long term (current) use of insulin; Z79.82 Long term (current) use of aspirin; Z98.51 Tubal ligation status; Y93.89 Activity, other specified; Y92.89 Other specified places as the place of occurrence of the external cause; Y99.8 Other external cause status
CPT/HCPCS: 36415; 80048; 81001; 82962; 83036; 85014; 85018; 85025; 85027; 85610; 85730; 86850; 86900; 86901; 86920; 96374; 96375; G0378; C1713; J0690; J1170; J1650; J1815; J1885; J2270; J2405; J2704; J7030; J7040; J7120; P9016

== ENCOUNTER 2021-12-07 11:15 | Inpatient (IN) | payer MEDICARE ==
--- NOTE | 2021-12-07 13:13 | XRay Report ---
LEFT HAND 2 VIEWS INDICATION / CLINICAL INFORMATION: Left hand injury after fall this morning. COMPARISON: None available. FINDINGS: BONES and JOINT(S): No acute fracture or subluxation. The bones are demineralized with multifocal sev ere degenerative arthrosis. SOFT TISSUES: No significant abnormality. ADDITIONAL FINDINGS: None. IMPRESSION: 1. No acute findings. LEFT WRIST 3 VIEWS INDICATION / CLINICAL INFORMATION: Left wrist injury after fall this morning. COMPARISON: None available. FINDINGS: BONES and JOINT(S): No acute fracture or subluxation. There is moderate radiocarpal joint space loss. SOFT TISSUES: No significant abnormality. ADDITIONAL FINDINGS: None. IMPRESSION: 1. No acute findings. Signer Name: Rafa Marquez MD Signed: 12/07/2021 1:09 PM Workstation Name: [id number]
--- NOTE | 2021-12-07 13:14 | XRay Report ---
RIGHT SHOULDER 4 VIEWS INDICATION / CLINICAL INFORMATION: Right shoulder injury after fall this morning. COMPARISON: None available. FINDINGS: BONES and JOINT(S): The bones are demineralized. There is an acute comminuted fracture of the humeral neck with associated impaction. No dislocation. Moderate/severe degenerative arthrosis is noted olga g the glenohumeral joint. No other significant arthritis. SOFT TISSUES: No significant abnormality. ADDITIONAL FINDINGS: None. IMPRESSION: 1. Acute right humeral neck fracture as above. Signer Name: Rafa Marquez MD Signed: 12/07/2021 1:10 PM Workstation Name: [id number]
--- NOTE | 2021-12-07 13:17 | XRay Report ---
BILATERAL HIPS 3 VIEWS INDICATION / CLINICAL INFORMATION: Pelvis/bilateral hip injury after fall this morning. COMPARISON: Right femur series and CT right lower extremity without contrast performed on 04/13/2019. FINDINGS: BONES and JOINT(S): The bones are demineralized. There is an acute fracture of the right pubic bone w ith involvement of the superior and inferior right pubic rami. No dislocation. There is mild degenera tive arthrosis of the hips and lower lumbar spine. Partially visualized internal fixation of the righ t femur is unremarkable as seen. SOFT TISSUES: Moderate atherosclerosis is noted along the pelvis and upper thighs. No other significa nt abnormality. ADDITIONAL FINDINGS: None. IMPRESSION: 1. Acute right pubic bone fractures as above. 2. Additional findings as above. Signer Name: Rafa Marquez MD Signed: 12/07/2021 1:13 PM Workstation Name: [id number]
[2021-12-07 14:17] LABS: Basophils % (Auto) 0.4 % (0.0-1.8); Eosinophils % (Auto) 0.1 % (0.0-4.3); Hematocrit 32.6 % (30.3-42.9); Hemoglobin 10.4 gm/dl (10.1-14.3); Lymphocytes # (Auto) 0.3 K/mm3 (1.2-5.4); Lymphocytes % (Auto) 5.8 % (13.4-35.0); Mean Corpuscular HGB Conc 32 % (30-34); Mean Corpuscular Volume 82 fl (79-97); Monocytes # (Auto) 0.3 K/mm3 (0.0-0.8); Monocytes % (Auto) 4.9 % (0.0-7.3); Platelet Count 231 K/mm3 (140-440); Red Cell Distribution Width 16.3 % (13.2-15.2)
[2021-12-07 14:25] LABS: INR 0.87 (0.87-1.13)
[2021-12-07 14:33] LABS: Alanine Aminotransferase 16 units/L (7-56); Albumin 4.2 g/dL (3.9-5); BUN/Creatinine Ratio 19; Blood Urea Nitrogen 15 mg/dL (7-17); Calcium 8.8 mg/dL (8.4-10.2); Hemolysis Index 2
[2021-12-07] MEDS ORDERED: fentaNYL 100 MCG/2 ML INJ IV ONE ×2 (19:19→23:32)
[2021-12-07] MEDS ORDERED: ONDANSETRON 4 MG/2 ML INJ IV ONE (19:20)
--- NOTE | 2021-12-07 19:22 | Emergency Department Report ---
ED Fall HPI - General Chief Complaint: Fall Stated Complaint: FALL, RIGHT ARM PAIN Time Seen by Provider: 12/07/21 19:05 Source: patient, family Mode of arrival: Wheelchair - History of Present Illness Initial Comments: 82-year-old female presents with fall injury to the right shoulder and right hip that started this morning after a fall. Patient reports that she believes her blood sugar was low before the fall. No fever or chills reported. Patient's son who was in the examination room confirmed that this usually happen when her blood sugar is low. No other modifying or associated factors reported. - Related Data Home Medications Medication Instructions Recorded Confirmed Last Taken C,E,Zinc,Copper 24/Om3/Lut/Luther 1 each PO DAILY 04/15/13 04/13/19 04/15/13 05:30 [Ocuvite Adult 50 Plus Softgel] Indra/D3/Mag11/Zinc/Undercoater/Owen/Bor 1 each PO BID 04/15/13 04/13/19 04/15/13 05:30 [Caltrate 600+D Plus Tablet] Insulin NPH/Regular [NovoLIN 70/30] 10 unit SQ QAM 04/15/13 04/13/19 04/15/13 05:45 Insulin NPH/Regular [NovoLIN 70/30] 10 unit SQ QPM 04/15/13 04/13/19 04/14/13 17:45 Aspirin 81 mg PO DAILY 04/13/19 04/13/19 Unknown Feosol 45mg 65 mg PO DAILY 04/13/19 04/13/19 Unknown Latanoprost 0.005% 1 drop OU HS 04/13/19 04/13/19 Unknown Losartan/Hydrochlorothiazide 100 mg PO DAILY 04/13/19 04/13/19 Unknown Previous Rx's Medication Instructions Recorded Last Taken Type Docusate Sodium [Colace CAP] 100 mg PO BID #30 capsule 04/20/13 Unknown Rx amLODIPine 10 mg PO QDAY #30 tablet 04/20/13 Unknown Rx bisacodyL [Dulcolax suppos] 10 mg [place] QDAY PRN #7 supp.rect 04/20/13 Unknown Rx Apixaban [Eliquis] 2.5 mg PO BID 35 Days #70 tablet 04/20/19 Unknown Rx traMADoL [Ultram 50 MG tab] 50 mg PO Q6HR PRN #20 tablet 04/20/19 Unknown Rx Allergies Allergy/AdvReac Type Severity Reaction Status Date / Time diclofenac sodium Allergy Unknown Verified 04/15/13 13:14 [From Voltaren] insulin isophane (NPH) Allergy Hives Verified 04/15/13 13:14 [Insulin Isophane NPH] clarithromycin [From Biaxin] AdvReac Vomiting Verified 04/15/13 13:14 hydrocodone [Hydrocodone] AdvReac Vomiting Verified 04/15/13 13:14 ED Review of Systems ROS: Stated complaint: FALL, RIGHT ARM PAIN Other details as noted in HPI Comment: All other systems reviewed and negative Musculoskeletal: joint swelling, myalgia, other (Right shoulder and right hip and pelvic pain) ED Past Medical Hx - Past Medical History Hx Hypertension: Yes Hx Diabetes: Yes (SINCE 1972) Hx Sickle Cell Disease: No Hx Arthritis: Yes Hx Dementia: No - Surgical History Hx Cholecystectomy: Yes Additional Surgical History: tubal ligation, mole removed right arm (+ melanoma) - Social History Smoking Status: Never Smoker Substance Use Type: None - Medications Home Medications: Home Medications Medication Instructions Recorded Confirmed Last Taken Type C,E,Zinc,Copper 24/Om3/Lut/Luther 1 each PO DAILY 04/15/13 04/13/19 04/15/13 05:30 History [Ocuvite Adult 50 Plus Softgel] Indra/D3/Mag11/Zinc/Undercoater/Owen/Bor 1 each PO BID 04/15/13 04/13/19 04/15/13 05:30 History [Caltrate 600+D Plus Tablet] Insulin NPH/Regular [NovoLIN 70/30] 10 unit SQ QAM 04/15/13 04/13/19 04/15/13 05:45 History Insulin NPH/Regular [NovoLIN 70/30] 10 unit SQ QPM 04/15/13 04/13/19 04/14/13 17:45 History Docusate Sodium [Colace CAP] 100 mg PO BID #30 capsule 04/20/13 04/13/19 Unknown Rx amLODIPine 10 mg PO QDAY #30 tablet 04/20/13 04/13/19 Unknown Rx bisacodyL [Dulcolax suppos] 10 mg NH QDAY PRN #7 supp.rect 04/20/13 04/13/19 Unknown Rx Aspirin 81 mg PO DAILY 04/13/19 04/13/19 Unknown History Feosol 45mg 65 mg PO DAILY 04/13/19 04/13/19 Unknown History Latanoprost 0.005% 1 drop OU HS 04/13/19 04/13/19 Unknown History Losartan/Hydrochlorothiazide 100 mg PO DAILY 04/13/19 04/13/19 Unknown History Apixaban [Eliquis] 2.5 mg PO BID 35 Days #70 tablet 04/20/19 Unknown Rx traMADoL [Ultram 50 MG tab] 50 mg PO Q6HR PRN #20 tablet 04/20/19 Unknown Rx ED Physical Exam - General Limitations: No Limitations General appearance: alert, in distress (Due to pain) - Head Head exam: Present: atraumatic, normal inspection - Eye Eye exam: Present: normal appearance Pupils: Present: normal accommodation - ENT ENT exam: Present: normal exam, normal orophraynx, mucous membranes moist - Neck Neck exam: Present: normal inspection - Cardiovascular Cardiovascular Exam: Present: regular rate, normal rhythm, normal heart sounds - GI/Abdominal GI/Abdominal exam: Present: soft. Absent: distended, tenderness - Extremities Exam Extremities exam: Present: tenderness (right shoulder and right hip ), normal capillary refill - Back Exam Back exam: Present: normal inspection. Absent: tenderness - Neurological Exam Neurological exam: Present: alert, oriented X3 - Psychiatric Psychiatric exam: Present: normal affect, normal mood - Skin Skin exam: Present: warm, normal color ED Course Vital Signs 12/07/21 12/07/21 12/07/21 11:55 19:35 20:30 Temperature 98.9 F Pulse Rate 79 74 Respiratory 18 17 18 Rate Blood Pressure 177/56 167/59 [Left] O2 Sat by Pulse 99 99 100 Oximetry - Reevaluation(s) Reevaluation #1: 12/07/21 20:51 here with fall associated with right shoulder and right hip -- noted with tenderness there and with confirmed right humeral neck fx and pelvic ramis superior and inferior ramus fx -- given pain medication and will check routine labs including coag level-- Reevaluation #2: 12/07/21 20:53 Pt will be consider for admission-- 12/07/21 23:[address] Crooks who was not crap game box person but graceful enough to accept patient consult and plan to see patient in the morning. He suggested admitting patient to the hospitalist [facility]. So Dr Duke consulted who accept pt for further evaluation and treatment. Reevaluation #3: 12/07/21 23:51 - Consultations Consultation #1: 12/07/21 23:15 Dr Wagoner at [facility] who accepted patient before Dr Crooks respond to my text message and called Consultation #2: 12/07/21 23:16 Dr Crooks orthopedic who agreed to have patient admitted to our hospital via hospitalist Consultation #3: 12/07/21 23:17 Dr Duke the hospitalist who accept pt for further evaluation and treatment ED Medical Decision Making - Lab Data Result diagrams: 12/07/21 13:55 12/07/21 13:55 Critical care attestation.: If time is entered above; I have spent that time in minutes in the direct care of this critically ill patient, excluding procedure time. ED Disposition Clinical Impression: Humeral fracture Qualifiers: Encounter type: initial encounter Humerus Location: surgical neck Fracture t ype: closed Fracture morphology: 2-part Fracture alignment: nondisplaced Laterality: right Qualified Code(s): S42.224A - 2-part nondisplaced fracture of surgical neck of right humerus, initial encounter for closed fracture Closed fracture of single pubic ramus of pelvis Qualifiers: Encounter type: initial encounter Laterality: right Qualified Code(s): S32.591A - Other specified fracture of right pubis, initial encounter for closed fracture Disposition: 09 ADMITTED INPATIENT Is pt being admited?: Yes Does the pt Need Aspirin: No Condition: Stable Referrals: MICHAEL YAN [Other] - 3-5 Days Time of Disposition: 23:17 (Dr Duke and Valeriy consulted pt accepted )
[2021-12-07] MEDS ORDERED: INSULIN REGULAR, HUMAN 100 UNITS/1 ML SUB-Q ONE (21:59)
[2021-12-07] MEDS ORDERED: INSULIN REGULAR, HUMAN 100 UNITS/1 ML IV ONE (21:59)
[2021-12-07] MEDS ORDERED: SODIUM CHLORIDE 0.9% 1000 ML 1,000 ML IV ONE (21:59)
[2021-12-07] MEDS ORDERED: fentaNYL 100 MCG/2 ML INJ ONE (23:29)
[2021-12-08] MEDS ORDERED: ALBUTEROL 2.5 MG/3 ML NEBU IH PRN (01:18)
[2021-12-08] MEDS ORDERED: MORPHINE 2 MG/1 ML INJ IV PRN (01:18)
[2021-12-08] MEDS ORDERED: ONDANSETRON 4 MG/2 ML INJ IV PRN (01:18)
[2021-12-08] MEDS ORDERED: ACETAMINOPHEN 325 MG TAB PO PRN (01:18)
[2021-12-08] MEDS ORDERED: DEXTROSE 50% IN WATER (25GM) 50 ML SYRINGE IV PRN (01:18)
--- NOTE | 2021-12-08 01:30 | History and Physical Report ---
History of Present Illness Date of examination: 12/08/21 Date of admission: 12/08/21 Chief complaint: Fall Right arm injury History of present illness: 82-year-old female with past medical history of hypertension, diabetes, arthritis was brought to the hospital because of fall injury to the right shoulder and right hip that started this morning after a fall. Patient reports that she believes her blood sugar was low before the fall. No fever or chills reported. Patient's son who was in the examination room confirmed that this usually happen when her blood sugar is low. No other modifying or associated factors reported. In the emergency room patient is found to have right humeral neck fx and pelvic ramis superior and inferior ramus fx . Case discussed with Dr. Crooks who will see the patient in consultation Past History Past Medical History: arthritis, diabetes, hypertension Past Surgical History: cholecystectomy, Other (tubal ligation, mole removed right arm (+ melanoma)) Social history: no significant social history Family history: no significant family history Medications and Allergies Allergies Allergy/AdvReac Type Severity Reaction Status Date / Time diclofenac sodium Allergy Unknown Verified 04/15/13 13:14 [From Voltaren] insulin isophane (NPH) Allergy Hives Verified 04/15/13 13:14 [Insulin Isophane NPH] clarithromycin [From Biaxin] AdvReac Vomiting Verified 04/15/13 13:14 hydrocodone [Hydrocodone] AdvReac Vomiting Verified 04/15/13 13:14 Home Medications Medication Instructions Recorded Confirmed Last Taken Type C,E,Zinc,Copper 24/Om3/Lut/Luther 1 each PO DAILY 04/15/13 04/13/19 04/15/13 05:30 History [Ocuvite Adult 50 Plus Softgel] Indra/D3/Mag11/Zinc/Electrical Integrator/Owen/Bor 1 each PO BID 04/15/13 04/13/19 04/15/13 05:30 History [Caltrate 600+D Plus Tablet] Insulin NPH/Regular [NovoLIN 70/30] 10 unit SQ QAM 04/15/13 04/13/19 04/15/13 05:45 History Insulin NPH/Regular [NovoLIN 70/30] 10 unit SQ QPM 04/15/13 04/13/19 04/14/13 17:45 History Docusate Sodium [Colace CAP] 100 mg PO BID #30 capsule 04/20/13 04/13/19 Unknown Rx amLODIPine 10 mg PO QDAY #30 tablet 04/20/13 04/13/19 Unknown Rx bisacodyL [Dulcolax suppos] 10 mg AR QDAY PRN #7 supp.rect 04/20/13 04/13/19 Unknown Rx Aspirin 81 mg PO DAILY 04/13/19 04/13/19 Unknown History Feosol 45mg 65 mg PO DAILY 04/13/19 04/13/19 Unknown History Latanoprost 0.005% 1 drop OU HS 04/13/19 04/13/19 Unknown History Losartan/Hydrochlorothiazide 100 mg PO DAILY 04/13/19 04/13/19 Unknown History Apixaban [Eliquis] 2.5 mg PO BID 35 Days #70 tablet 04/20/19 Unknown Rx traMADoL [Ultram 50 MG tab] 50 mg PO Q6HR PRN #20 tablet 04/20/19 Unknown Rx Active Meds: Active Medications Acetaminophen (Acetaminophen 325 Mg Tab) 650 mg PO Q4H PRN PRN Reason: Pain MILD(1-3)/Fever >100.5/[place] Albuterol (Albuterol 2.5 Mg/3 Ml Nebu) 2.5 mg IH Q3HRT PRN PRN Reason: Shortness Of Breath Albuterol/Ipratropium (Ipratropium/Albuterol Sulfate 3 Ml Ampul.Neb) 1 ampul IH Q6HRT PATTI Amlodipine Besylate (Amlodipine 10 Mg Tab) 10 mg PO QDAY PATTI Dextrose (Dextrose 50% In Water (25gm) 50 Ml Syringe) 50 ml IV Q30MIN PRN; Protocol PRN Reason: Hypoglycemia Docusate Sodium (Docusate Sodium 100 Mg Cap) 100 mg PO BID PATTI Famotidine (Famotidine 20 Mg/2 Ml Inj) 20 mg IV BID [facility] Heparin Sodium (Porcine) (Heparin 5,000 Unit/1 Ml Vial) 5,000 unit SUB-Q Q12HR [facility] Sodium Chloride (Nacl 0.9% 1000 Ml) 1,000 mls @ 100 mls/hr IV DIRECT PATTI Insulin Human Lispro (Insulin Lispro 100 Unit/Ml) 0 unit SUB-Q Q6HR PATTI; Protocol Miscellaneous Medication (Feosol 45mg) 65 mg PO DAILY [facility] Miscellaneous Medication (Latanoprost 0.005%) 1 drop OU HS PATTI Miscellaneous Medication (Losartan/Hydrochlorothiazide) 100 mg PO DAILY PATTI Morphine Sulfate (Morphine 2 Mg/1 Ml Inj) 2 mg IV Q4H PRN PRN Reason: Pain, Moderate (4-6) Morphine Sulfate (Morphine 4 Mg/1 Ml Inj) 4 mg IV Q4H PRN PRN Reason: Pain , Severe (7-10) Ondansetron HCl (Ondansetron 4 Mg/2 Ml Inj) 4 mg IV Q8H PRN PRN Reason: Nausea And Vomiting Sodium Chloride (Sodium Chloride 0.9% 10 Ml Flush Syringe) 10 ml IV BID PATTI Sodium Chloride (Sodium Chloride 0.9% 10 Ml Flush Syringe) 10 ml IV PRN PRN PRN Reason: LINE FLUSH Review of Systems All systems: negative Constitutional: other (Fall right arm pain, joint swelling, myalgia right shoulder and right hip and pelvic pain) Exam - Constitutional Vitals: Temp Pulse Resp BP Pulse Ox 98.9 F 74 18 167/59 100 12/07/21 11:55 12/07/21 19:35 12/07/21 20:30 12/07/21 19:35 12/07/21 20:30 General appearance: Present: no acute distress, well-nourished - EENT Eyes: Present: PERRL ENT: hearing intact, clear oral mucosa - Neck Neck: Present: supple, normal ROM - Respiratory Respiratory effort: normal Respiratory: bilateral: CTA - Cardiovascular Heart Sounds: Present: S1 & S2. Absent: rub, click - Extremities Extremities: pulses symmetrical, No edema Extremity abnormal: other (Right shoulder pain right arm pain, joint swelling and myalgia, right hip and pelvic pain) Peripheral Pulses: within normal limits - Abdominal General gastrointestinal: Present: soft, non-tender, non-distended, normal bowel sounds Female genitourinary: Present: normal - Integumentary Integumentary: Present: clear, warm, dry - Musculoskeletal Musculoskeletal: gait normal, strength equal bilaterally - Psychiatric Psychiatric: appropriate mood/affect, intact judgment & insight - Neurologic Neurologic: CNII-XII intact, moves all extremities HEART Score - HEART Score Troponin: Troponin T < 0.010 ng/mL (0.00-0.029) 12/07/21 13:55 Results - Labs CBC & Chem 7: 12/07/21 13:55 12/07/21 13:55 Labs: Laboratory Last Values WBC 5.9 K/mm3 (4.5-11.0) 12/07/21 13:55 RBC 4.00 M/mm3 (3.65-5.03) 12/07/21 13:55 Hgb 10.4 gm/dl (10.1-14.3) 12/07/21 13:55 Hct 32.6 % (30.3-42.9) 12/07/21 13:55 MCV 82 fl (79-97) 12/07/21 13:55 MCH 26 pg (28-32) L 12/07/21 13:55 MCHC 32 % (30-34) 12/07/21 13:55 RDW 16.3 % (13.2-15.2) H 12/07/21 13:55 Plt Count 231 K/mm3 (140-440) 12/07/21 13:55 Lymph % (Auto) 5.8 % (13.4-35.0) L 12/07/21 13:55 Long % (Auto) 4.9 % (0.0-7.3) 12/07/21 13:55 Eos % (Auto) 0.1 % (0.0-4.3) 12/07/21 13:55 Baso % (Auto) 0.4 % (0.0-1.8) 12/07/21 13:55 Lymph # (Auto) 0.3 K/mm3 (1.2-5.4) L 12/07/21 13:55 Long # (Auto) 0.3 K/mm3 (0.0-0.8) 12/07/21 13:55 Eos # (Auto) 0.0 K/mm3 (0.0-0.4) 12/07/21 13:55 Baso # (Auto) 0.0 K/mm3 (0.0-0.1) 12/07/21 13:55 Seg Neutrophils % 88.8 % (40.0-70.0) H 12/07/21 13:55 Seg Neutrophils # 5.3 K/mm3 (1.8-7.7) 12/07/21 13:55 PT 12.7 Sec. (12.2-14.9) 12/07/21 13:55 INR 0.87 (0.87-1.13) 12/07/21 13:55 Sodium 137 mmol/L (137-145) 12/07/21 13:55 Potassium 4.1 mmol/L (3.6-5.0) 12/07/21 13:55 Chloride 98.7 mmol/L (98-107) 12/07/21 13:55 Carbon Dioxide 29 mmol/L (22-30) 12/07/21 13:55 Anion Gap 13 mmol/L 12/07/21 13:55 BUN 15 mg/dL (7-17) 12/07/21 13:55 Creatinine 0.8 mg/dL (0.6-1.2) 12/07/21 13:55 Estimated GFR > 60 ml/min 12/07/21 13:55 BUN/Creatinine Ratio 19 % 12/07/21 13:55 Glucose 216 mg/dL (65-100) H 12/07/21 13:55 POC Glucose 339 mg/dL (70-105) H 12/07/21 21:47 Calcium 8.8 mg/dL (8.4-10.2) 12/07/21 13:55 Total Bilirubin 0.40 mg/dL (0.1-1.2) 12/07/21 13:55 AST 22 units/L (5-40) 12/07/21 13:55 ALT 16 units/L (7-56) 12/07/21 13:55 Alkaline Phosphatase 81 units/L (35-129) 12/07/21 13:55 Troponin T < 0.010 ng/mL (0.00-0.029) 12/07/21 13:55 Total Protein 7.1 g/dL (6.3-8.2) 12/07/21 13:55 Albumin 4.2 g/dL (3.9-5) 12/07/21 13:55 Albumin/Globulin Ratio 1.4 % 12/07/21 13:55 - Imaging and Cardiology Chest x-ray: report reviewed Assessment and Plan VTE prophylaxis?: Chemical Plan of care discussed with patient/family: Yes - Patient Problems (1) Closed fracture of single pubic ramus of pelvis Current Visit: Yes Status: Acute Qualifiers: Encounter type: initial encounter Laterality: right Qualified Code(s): S32.591A - Other specified fracture of right pubis, initial encounter for closed fracture Plan to address problem: Admit the patient to the medical floor telemetry. Patient is on fall precaution . Will consult orthopedic Dr. Crooks to see the patient for further evaluation and possible surgery. Morphine 2 mg IV every 4 hours as needed. We continue the home medication. Please resume Eliquis and aspirin if okay with orthopedic surgeon. (2) Humeral fracture Current Visit: Yes Status: Acute Qualifiers: Encounter type: initial encounter Humerus Location: surgical neck Fracture type: closed Fracture morphology: 2-part Fracture alignment: nondisplaced Laterality: right Qualified Code(s): S42.224A - 2-part nondisplaced fracture of surgical neck of right humerus, initial encounter for closed fracture Plan to address problem: Patient is on fall precaution. Will consult orthopedic Dr. Crooks to see the patient for further evaluation and possible surgery. Morphine 2 mg IV every 4 hours as needed. We continue the home medication. Please resume Eliquis and aspirin if okay with orthopedic surgeon. (3) Diabetes mellitus type 2 in nonobese Current Visit: No Status: Acute Plan to address problem: Accu-Chek every 6 hours with moderate dose Humalog coverage. Diabetic education (4) Hypertension Current Visit: No Status: Acute Plan to address problem: Hydralazine 10 mg IV every 6 hours as needed. We continue the home medication (5) DVT prophylaxis Current Visit: Yes Status: Acute Plan to address problem: SCD for DVT prophylaxis. Pepcid 20 mg IV every 12 hours for GI prophylaxis. Patient is a full code
[2021-12-08] MEDS ORDERED: IPRATROPIUM/ALBUTEROL SULFATE 3 ML AMPUL.NEB IH SCH (02:00)
[2021-12-08] MEDS: MORPHINE 4 MG/1 ML INJ IV PRN ×4 (02:51→18:48)
[2021-12-08] MEDS: SODIUM CHLORIDE 0.9% 1000 ML 1,000 ML IV SCH ×2 (04:16→16:50)
[2021-12-08] MEDS: INSULIN LISPRO 100 UNIT/ML SUB-Q SCH ×3 (06:44→17:00)
--- NOTE | 2021-12-08 09:05 | Electrocardiograph Report ---
[facility] Test Date: 2021-12-07 Test Time: 12:08:10 Pat Name: MORIS CANTOR Department: Room: A454 Gender: F Director Of Procurement: DELORES : 1940 Requested By: ED DOC Order Number: [id number] Reading MD: Artemio Marquez Measurements Intervals [place] Rate: 67 P: 66 MT: 162 QRS: 57 QRSD: 80 T: 58 QT: 441 QTc: 465 Interpretive Statements Sinus rhythm Probable left atrial enlargement Probable left ventricular hypertrophy No previous ECG available for comparison Electronically Signed On 12-08-2021 9:04:52 EDT by Artemio Marquez
[2021-12-08] MEDS: DOCUSATE SODIUM 100 MG CAP PO SCH ×2 (09:41→21:59)
[2021-12-08] MEDS: amLODIPine 10 MG TAB PO SCH (09:41)
[2021-12-08] MEDS: LOSARTAN 50 MG TAB PO SCH (09:41)
[2021-12-08] MEDS: FAMOTIDINE 20 MG/2 ML INJ IV SCH ×2 (09:41→21:59)
[2021-12-08] MEDS: FERROUS SULFATE 325 MG TAB PO SCH (09:41)
[2021-12-08] MEDS ORDERED: HEPARIN 5,000 UNIT/1 ML VIAL SUB-Q SCH (10:00)
--- NOTE | 2021-12-08 10:49 | Cat Scan Report ---
CT RIGHT SHOULDER WITHOUT CONTRAST INDICATION / CLINICAL INFORMATION: possible displaced right humeral head fracture. TECHNIQUE: All CT scans at this location are performed using CT dose reduction for ALARA by means of automated exposure control. Axial CT images were obtained through the right shoulder and right upper extremity. Coronal and sagittal 2-D reconstruction images were produced. COMPARISON: Radiograph dated 12/07/21 FINDINGS: BONES: Mildly comminuted transverse fracture of the surgical neck of the humerus with slight impactio n. Humeral shaft is displaced anteriorly by one shaft width relative to the humeral head. Fracture li ne does not extend to the articular surface of humeral head. Humeral head is slightly rotated posteri pam. No humeral head dislocation. No osseous lesion. JOINT SPACE / CAPSULE: Moderate right shoulder joint effusion/hemarthrosis. ACROMION / A.C. JOINT: No significant abnormality. SUBACROMIAL / SUBDELTOID SPACE: No significant abnormality. MUSCLES / TENDONS: No significant abnormality. SOFT TISSUES: Moderate soft tissue swelling around the right shoulder and into the upper arm. VISUALIZED CHEST: Linear subpleural scarring in the right lung base. ADDITIONAL FINDINGS: None. IMPRESSION: 1. Mild comminuted, transverse fracture of the surgical neck of the humerus. No humeral head dislocat ion. Signer Name: Momo Celis MD Signed: 12/08/2021 10:45 AM Workstation Name: [email or web address]
--- NOTE | 2021-12-08 10:55 | XRay Report ---
RIGHT FEMUR AP AND LATERAL VIEWS INDICATION / CLINICAL INFORMATION: hx of fall, s/p IM nail right distal femur '19 COMPARISON: Pelvis radiographs 12/07/2021. FINDINGS: BONES / JOINT(S): As seen on the exam from one day prior, right superior and inferior pubic ramus fra ctures are noted. Intramedullary linda with proximal and distal screw fixation is seen across a healed distal femoral metadiaphyseal fracture. No acute right femur fracture. SOFT TISSUES: No significant abnormality. ADDITIONAL FINDINGS: None. IMPRESSION: No acute right femur fracture. Signer Name: Joni Lawrence MD Signed: 12/08/2021 10:51 AM Workstation Name: [id number]
--- NOTE | 2021-12-08 13:21 | Consultation ---
History of Present Illness - [facility] Consult date: 12/08/21 Consult reason: joint pain, fracture History of present illness: 81 y/o female with c/o right shoulder and pelvic pain after a fall yesterday at home, brought to our ED where xrays taken reveal multiple fractures including right proximal humerus and pubic rami...She's well known to me from previous admission April for distal femur fracture... Past History Past Medical History: arthritis, diabetes, hypertension Past Surgical History: cholecystectomy, Other (tubal ligation, mole removed right arm (+ melanoma)) Social history: no significant social history Family history: no significant family history Medications and Allergies Allergies Allergy/AdvReac Type Severity Reaction Status Date / Time diclofenac sodium Allergy Unknown Verified 12/08/21 12:36 [From Voltaren] insulin isophane (NPH) Allergy Hives Verified 12/08/21 12:36 [Insulin Isophane NPH] clarithromycin [From Biaxin] AdvReac Vomiting Verified 12/08/21 12:36 hydrocodone [Hydrocodone] AdvReac Shortness Verified 12/08/21 12:36 of Breath Home Medications Medication Instructions Recorded Confirmed Last Taken Type C,E,Zinc,Copper 24/Om3/Lut/Luther 1 each PO DAILY 04/15/13 12/08/21 04/15/13 05:30 History [Ocuvite Adult 50 Plus Softgel] Insulin NPH/Regular [NovoLIN 70/30] 8 - 10 unit SQ QPM 04/15/13 12/08/21 04/14/13 17:45 History Insulin NPH/Regular [NovoLIN 70/30] 10 - 13 unit SQ QAM 04/15/13 12/08/21 04/15/13 05:45 History amLODIPine 10 mg PO QDAY #30 tablet 04/20/13 12/08/21 Unknown Rx Apixaban [Eliquis] 2.5 mg PO BID 35 Days #70 tablet 04/20/19 12/08/21 Unknown Rx Acetaminophen [Non-Aspirin Extra 1,000 mg PO Q6H PRN 12/08/21 12/08/21 Unknown History Strength] Ascorbic Acid [Vitamin C] 1,000 mg PO QDAY 12/08/21 12/08/21 Unknown History Aspirin EC [Halfprin EC] 81 mg PO QDAY 12/08/21 12/08/21 Unknown History Docusate Sodium [Colace] 300 mg PO QAM PRN 12/08/21 12/08/21 Unknown History Duloxetine HCl [Cymbalta] 60 mg PO QDAY 12/08/21 12/08/21 Unknown History Latanoprost 0.005% [Xalatan 0.005%] 1 drop OU QPM 12/08/21 12/08/21 Unknown History Losartan/Hydrochlorothiazide 1 each PO QDAY 12/08/21 12/08/21 Unknown History [Losartan-Hctz 100-12.5 mg Tab] Menthol [Eucerin Itch Relief] 10 ml TP QDAY 12/08/21 12/08/21 Unknown History Pnv No.121/Iron/Folic Acid 1 each PO QDAY 12/08/21 12/08/21 Unknown History [ Multivitamin Tablet] Polyethylene Glycol 400 [Blink 1 drop OU BID 12/08/21 12/08/21 Unknown History Tears] Active Meds: Active Medications Acetaminophen (Acetaminophen 325 Mg Tab) 650 mg PO Q4H PRN PRN Reason: Pain MILD(1-3)/Fever >100.5/[place] Albuterol (Albuterol 2.5 Mg/3 Ml Nebu) 2.5 mg IH Q3HRT PRN PRN Reason: Shortness Of Breath Amlodipine Besylate (Amlodipine 10 Mg Tab) 10 mg PO QDAY [facility] Last Admin: 12/08/21 09:41 Dose: 10 mg Dextrose (Dextrose 50% In Water (25gm) 50 Ml Syringe) 0 ml IV Q30MIN PRN; Protocol PRN Reason: Hypoglycemia Docusate Sodium (Docusate Sodium 100 Mg Cap) 100 mg PO BID [facility] Last Admin: 12/08/21 09:41 Dose: 100 mg Famotidine (Famotidine 20 Mg/2 Ml Inj) 20 mg IV BID [facility] Last Admin: 12/08/21 09:41 Dose: 20 mg Ferrous Sulfate (Ferrous Sulfate 325 Mg Tab) 325 mg PO DAILY [facility] Last Admin: 12/08/21 09:41 Dose: 325 mg Sodium Chloride (Nacl 0.9% 1000 Ml) 1,000 mls @ 100 mls/hr IV DIRECT [facility] Last Admin: 12/08/21 04:16 Dose: 100 mls/hr Insulin Human Lispro (Insulin Lispro 100 Unit/Ml) 0 unit SUB-Q Q6HR [facility]; Protocol Last Admin: 12/08/21 06:44 Dose: Not Given Latanoprost (Latanoprost 0.005% Ophth Soln 2.5 Ml) 1 drops OU HS [facility] Losartan Potassium (Losartan 50 Mg Tab) 100 mg PO DAILY [facility] Last Admin: 12/08/21 09:41 Dose: 100 mg Morphine Sulfate (Morphine 2 Mg/1 Ml Inj) 2 mg IV Q4H PRN PRN Reason: Pain, Moderate (4-6) Morphine Sulfate (Morphine 4 Mg/1 Ml Inj) 4 mg IV Q4H PRN PRN Reason: Pain , Severe (7-10) Last Admin: 12/08/21 08:16 Dose: 4 mg Ondansetron HCl (Ondansetron 4 Mg/2 Ml Inj) 4 mg IV Q8H PRN PRN Reason: Nausea And Vomiting Sodium Chloride (Sodium Chloride 0.9% 10 Ml Flush Syringe) 10 ml IV BID [facility] Last Admin: 12/08/21 09:41 Dose: 10 ml Sodium Chloride (Sodium Chloride 0.9% 10 Ml Flush Syringe) 10 ml IV PRN PRN PRN Reason: LINE FLUSH Physical Examination - Physical exam Narrative exam: right shoulder - moderate swelling, skin intact, no obvious deformity noted, tender on palpation, distal n/v intact Eyes: PERRL ENT: Positive: clear oral mucosa Respiratory effort: normal Respiratory: bilateral: CTA Rhythm: regular Heart Sounds: Positive: S1 & S2 General gastrointestinal: Positive: soft, non-tender, non-distended, normal bowel sounds Integumentary: clear, warm, dry Neurologic: Positive: CNII-XII intact, moves all extremities, gait normal. Negative: focal deficits Assessment and Plan Displaced right proximal humerus fracture recommend -closed reduction insertion IM nail right proximal humerus
--- NOTE | 2021-12-08 18:28 | Progress Note ---
Assessment and Plan Assessment and plan: -- Closed fracture of single pubic ramus of pelvis Fall precaution. Supportive care Orthopedic consult pending, patient n.p.o. status Continue IV fluids, pain medications, supportive care, immobilization --Humeral fracture right Follow Ortho evaluation and recommendations possible surgical procedure, morphine 2 mg IV every 4 hours as needed. Please resume Eliquis and aspirin if okay with orthopedic surgeon. --Diabetes mellitus type 2 in nonobese Accu-Chek sliding scale coverage ADA diet Insulin as needed -- Hypertension Continue current antihypertensives, as needed hydralazine -- DVT prophylaxis SCD for DVT prophylaxis. Continue Pepcid 20 mg IV every 12 hours for GI prophylaxis. --Full CODE STATUS; -Prolonged care plan inpatient; Time spent 35 minutes --Advance care plan: +30 Discussed with the patient and family her condition Discussed the imaging studies, fracture of the humerus and pelvis Discussed the treatment plan, discussed pending orthopedic surgeon evaluation And possible surgical procedure, also discussed the need for physical therapy and Occupational Therapy And careful postoperative care. Answered all her questions Total time spent 35 minutes Follow Ortho evaluation recommendations Physical therapy occupational therapy and rehab We will closely monitor the patient and adjust management as needed Plan of care reviewed with the patient and her nurse History Interval history: Seen and examined the patient at the bedside Patient's chart and medications reviewed Patient had fall after slipping And sustained pelvic and shoulder injuries Patient complains of some pain Vital signs noted Hospitalist Physical - Constitutional Vitals: Temp Pulse Resp BP Pulse Ox 99.6 F 129 H 16 127/48 95 12/08/21 16:35 12/08/21 18:00 12/08/21 16:35 12/08/21 16:35 12/08/21 16:35 General appearance: Present: mild distress (Secondary to pain), well-nourished - EENT Eyes: Present: PERRL, EOM intact - Neck Neck: Present: supple, normal ROM - Respiratory Respiratory effort: normal Respiratory: bilateral: diminished, negative: rales, rhonchi, wheezing - Cardiovascular Rhythm: regular Heart Sounds: Present: S1 & S2 - Extremities Extremities: abnormal (Right shoulder tenderness, swelling) - Abdominal General gastrointestinal: soft, non-tender, non-distended, normal bowel sounds - Integumentary Integumentary: Present: clear, warm - Psychiatric Psychiatric: appropriate mood/affect, cooperative - Neurologic Neurologic: moves all extremities HEART Score - HEART Score Troponin: Troponin T < 0.010 ng/mL (0.00-0.029) 12/07/21 13:55 Results - Labs CBC & Chem 7: 12/09/21 04:00 12/09/21 04:00 Labs: Laboratory Last Values WBC 5.9 K/mm3 (4.5-11.0) 12/07/21 13:55 RBC 4.00 M/mm3 (3.65-5.03) 12/07/21 13:55 Hgb 10.4 gm/dl (10.1-14.3) 12/07/21 13:55 Hct 32.6 % (30.3-42.9) 12/07/21 13:55 MCV 82 fl (79-97) 12/07/21 13:55 MCH 26 pg (28-32) L 12/07/21 13:55 MCHC 32 % (30-34) 12/07/21 13:55 RDW 16.3 % (13.2-15.2) H 12/07/21 13:55 Plt Count 231 K/mm3 (140-440) 12/07/21 13:55 Lymph % (Auto) 5.8 % (13.4-35.0) L 12/07/21 13:55 [place] % (Auto) 4.9 % (0.0-7.3) 12/07/21 13:55 Eos % (Auto) 0.1 % (0.0-4.3) 12/07/21 13:55 Baso % (Auto) 0.4 % (0.0-1.8) 12/07/21 13:55 Lymph # (Auto) 0.3 K/mm3 (1.2-5.4) L 12/07/21 13:55 [place] # (Auto) 0.3 K/mm3 (0.0-0.8) 12/07/21 13:55 Eos # (Auto) 0.0 K/mm3 (0.0-0.4) 12/07/21 13:55 Baso # (Auto) 0.0 K/mm3 (0.0-0.1) 12/07/21 13:55 Seg Neutrophils % 88.8 % (40.0-70.0) H 12/07/21 13:55 Seg Neutrophils # 5.3 K/mm3 (1.8-7.7) 12/07/21 13:55 PT 12.7 Sec. (12.2-14.9) 12/07/21 13:55 INR 0.87 (0.87-1.13) 12/07/21 13:55 Sodium 137 mmol/L (137-145) 12/07/21 13:55 Potassium 4.1 mmol/L (3.6-5.0) 12/07/21 13:55 Chloride 98.7 mmol/L (98-107) 12/07/21 13:55 Carbon Dioxide 29 mmol/L (22-30) 12/07/21 13:55 Anion Gap 13 mmol/L 12/07/21 13:55 BUN 15 mg/dL (7-17) 12/07/21 13:55 Creatinine 0.8 mg/dL (0.6-1.2) 12/07/21 13:55 Estimated GFR > 60 ml/min 12/07/21 13:55 BUN/Creatinine Ratio 19 % 12/07/21 13:55 Glucose 216 mg/dL (65-100) H 12/07/21 13:55 POC Glucose 411 mg/dL (70-105) H 12/08/21 16:31 Calcium 8.8 mg/dL (8.4-10.2) 12/07/21 13:55 Total Bilirubin 0.40 mg/dL (0.1-1.2) 12/07/21 13:55 AST 22 units/L (5-40) 12/07/21 13:55 ALT 16 units/L (7-56) 12/07/21 13:55 Alkaline Phosphatase 81 units/L (35-129) 12/07/21 13:55 Troponin T < 0.010 ng/mL (0.00-0.029) 12/07/21 13:55 Total Protein 7.1 g/dL (6.3-8.2) 12/07/21 13:55 Albumin 4.2 g/dL (3.9-5) 12/07/21 13:55 Albumin/Globulin Ratio 1.4 % 12/07/21 13:55 Bazan/IV: Voiding Method External Female Catheter Active Medications - Current Medications Current Medications: Generic Name Dose Route Start Last Admin Trade Name Freq PRN Reason Stop Dose Admin Acetaminophen 650 mg 12/08/21 01:18 Acetaminophen 325 Mg Tab PO Q4H PRN Pain MILD(1-3)/Fever >100.5/[place] Albuterol 2.5 mg 12/08/21 01:18 Albuterol 2.5 Mg/3 Ml Nebu IH Q3HRT PRN Shortness Of Breath Amlodipine Besylate 10 mg 12/08/21 10:00 12/08/21 09:41 Amlodipine 10 Mg Tab PO 10 mg QDAY PATTI Administration Dextrose 0 ml 12/08/21 01:18 Dextrose 50% In Water (25gm) 50 Ml Syringe IV Q30MIN PRN Hypoglycemia Protocol Docusate Sodium 100 mg 12/08/21 10:00 12/08/21 09:41 Docusate Sodium 100 Mg Cap PO 100 mg BID PATTI Administration Famotidine 20 mg 12/08/21 10:00 12/08/21 09:41 Famotidine 20 Mg/2 Ml Inj IV 20 mg BID PATTI Administration Ferrous Sulfate 325 mg 12/08/21 10:00 12/08/21 09:41 Ferrous Sulfate 325 Mg Tab PO 325 mg DAILY PATTI Administration Sodium Chloride 1,000 mls @ 100 mls/hr 12/08/21 01:30 12/08/21 16:50 Nacl 0.9% 1000 Ml IV 100 mls/hr DIRECT PATTI Administration Insulin Human Lispro 0 unit 12/08/21 06:00 12/08/21 17:00 Insulin Lispro 100 Unit/Ml SUB-Q 9 unit Q6HR PATTI Administration Protocol Latanoprost 1 drops 12/08/21 22:00 Latanoprost 0.005% Ophth Soln 2.5 Ml OU HS [facility] Losartan Potassium 100 mg 12/08/21 10:00 12/08/21 09:41 Losartan 50 Mg Tab PO 100 mg DAILY PATTI Administration Morphine Sulfate 2 mg 12/08/21 01:18 Morphine 2 Mg/1 Ml Inj IV Q4H PRN Pain, Moderate (4-6) Morphine Sulfate 4 mg 12/08/21 01:18 12/08/21 14:33 Morphine 4 Mg/1 Ml Inj IV 4 mg Q4H PRN Administration Pain , Severe (7-10) Ondansetron HCl 4 mg 12/08/21 01:18 Ondansetron 4 Mg/2 Ml Inj IV Q8H PRN Nausea And Vomiting Sodium Chloride 10 ml 12/08/21 10:00 12/08/21 09:41 Sodium Chloride 0.9% 10 Ml Flush Syringe IV 10 ml BID PATTI Administration Sodium Chloride 10 ml 12/08/21 01:18 Sodium Chloride 0.9% 10 Ml Flush Syringe IV PRN PRN LINE FLUSH
[2021-12-08] MEDS ORDERED: INSULIN NPH/REGULAR 70/30 INJ SUB-Q ONE (21:45)
[2021-12-08] MEDS: LATANOPROST 0.005% OPHTH SOLN 2.5 ML OU SCH (21:59)
[2021-12-09] MEDS: INSULIN LISPRO 100 UNIT/ML SUB-Q SCH ×5 (00:21→22:26)
[2021-12-09] MEDS: SODIUM CHLORIDE 0.9% 1000 ML 1,000 ML IV SCH (02:38)
[2021-12-09 04:54] LABS: Basophils % (Auto) 0.2 % (0.0-1.8); Eosinophils % (Auto) 1.1 % (0.0-4.3); Hematocrit 23.8 % (30.3-42.9); Hemoglobin 7.7 gm/dl (10.1-14.3); Lymphocytes # (Auto) 0.4 K/mm3 (1.2-5.4); Mean Corpuscular HGB Conc 32 % (30-34); Mean Corpuscular Volume 82 fl (79-97); Monocytes # (Auto) 0.2 K/mm3 (0.0-0.8); Monocytes % (Auto) 5.8 % (0.0-7.3); Platelet Count 156 K/mm3 (140-440); Red Blood Count 2.92 M/mm3 (3.65-5.03)
[2021-12-09 05:05] LABS: Blood Urea Nitrogen 19 mg/dL (7-17); Hemolysis Index 4
[2021-12-09 05:30] LABS: BUN/Creatinine Ratio 27
[2021-12-09] MEDS: MORPHINE 4 MG/1 ML INJ IV PRN ×2 (06:19→10:11)
[2021-12-09] MEDS: FAMOTIDINE 20 MG/2 ML INJ IV SCH ×2 (10:05→22:26)
[2021-12-09] MEDS: DOCUSATE SODIUM 100 MG CAP PO SCH ×2 (10:10→22:26)
[2021-12-09] MEDS ORDERED: LACTATED RINGERS 1,000 ML ONE (10:31)
--- NOTE | 2021-12-09 10:33 | Anesthesia Day of Surgery ---
Anesthesia Day of Surgery - Day of Surgery Patient Examined: Yes Patient H&P Reviewed: Yes Patient is NPO: Yes
--- NOTE | 2021-12-09 10:38 | Anesthesia Consultation ---
Anesthesia Consult and Med Hx Date of service: 12/09/21 - Airway Anesthetic Teeth Evaluation: Poor (Missing; nine teeth need to be removed) ROM Head & Neck: Adequate Mental/Hyoid Distance: Adequate Mallampati Class: Class III Intubation Access Assessment: Probably Good - Pre-Operative Health Status ASA Pre-Surgery Classification: ASA3 Proposed Anesthetic Plan: General Nerve Block: IS - Pulmonary Hx Smoking: No SOB: Yes Hx Sleep Apnea: No - Cardiovascular System Hx Hypertension: Yes - Gastrointestinal Hx Gastroesophageal Reflux Disease: No - Endocrine Hx Insulin Dependent Diabetes: Yes (Fell from low BS) Hx Non-Insulin Dependent Diabetes: Yes - Hematic Hx Anemia: Yes (Chronic) Hx Sickle Cell Disease: No - Other Systems Hx Obesity: No - Additional Comments Anesthesia Medical History Comments: Here [id number]. Also has pelvic fracture
[2021-12-09] MEDS ORDERED: ROCURONIUM 50 MG/5 ML INJ IV ONE (10:42)
[2021-12-09] MEDS ORDERED: LIDOCAINE MPF (2%) 20 MG/1 ML VIAL 5 ML ONE (10:42)
[2021-12-09] MEDS ORDERED: BUPIVACAINE/PF (0.5%) 5 MG/1 ML 30 ML VIAL INFILTRATI ONE ×2 (10:51→12:55)
[2021-12-09] MEDS ORDERED: MIDAZOLAM 2 MG/2 ML INJ IV NR (11:00)
[2021-12-09] MEDS ORDERED: propofoL 200 MG/20 ML VIAL IV ONE (11:23)
[2021-12-09] MEDS ORDERED: ceFAZolin/Water 2 GM/20 ML 2 GM/20 ML SYRINGE IV ONE (11:24)
[2021-12-09] MEDS ORDERED: ONDANSETRON 4 MG/2 ML INJ IV PRN (12:00)
[2021-12-09] MEDS ORDERED: HYDROmorphone 0.5 MG/0.5 ML INJ IV PRN ×2 (12:00→12:30)
[2021-12-09] MEDS ORDERED: ceFAZolin/STERILE WATER 2 GM/20 ML SYRINGE IV SCH (12:00)
[2021-12-09] MEDS ORDERED: fentaNYL 100 MCG/2 ML INJ IV SCH (12:00)
[2021-12-09] MEDS ORDERED: ePHEDrine SULFATE 50 MG/1 ML INJ ONE (12:26)
[2021-12-09] MEDS ORDERED: SODIUM CHLORIDE 0.9% IRR 1,500 ML BOTTLE IR ONE (12:46)
[2021-12-09] MEDS ORDERED: dexAMETHasone 20 MG/5 ML VIAL ONE (12:58)
[2021-12-09] MEDS ORDERED: ONDANSETRON 4 MG/2 ML INJ ONE (12:58)
[2021-12-09] MEDS ORDERED: ACETAMINOPHEN 325 MG TAB PO PRN (13:00)
[2021-12-09] MEDS ORDERED: MORPHINE 2 MG/1 ML INJ IV PRN (13:00)
[2021-12-09] MEDS ORDERED: MORPHINE 4 MG/1 ML INJ IV PRN (13:00)
[2021-12-09] MEDS ORDERED: KETOROLAC 30 MG/1 ML INJ IV PRN (13:00)
--- NOTE | 2021-12-09 13:10 | Procedure Note ---
Date of procedure: 12/09/21 Pre-op diagnosis: Displaced right proximal humerus fracture Post-op diagnosis: same Procedure: Closed reduction and insertion of intramedullary nail [right] proximal humerus Procedure The patient was brought to the OR and placed on the table supine following induction and intubation she was placed in the beachchair position. The [right] upper extremity was then prepped and draped in the usual sterile manner, a timeout procedure was done to identify the patient and the correct operative site. An incision was made over the greater tuberosity and was taken down sharply through skin and subcutaneous the deltoid was split along with the rotator cuff tendon. A threaded guidewire was inserted through a proximal fragment across the fracture site into the distal humeral canal, The canal was reamed to a 11.5 mm diameter this was followed by insertion of the short humeral nail measuring 8mm x 175 mm length under C-arm fluoroscopy. Using the targeting device the proximal screws were inserted into the humeral head and this was followed by gentle traction on the distal fragment along with insertion of 1 distal interlocking screw. Again AP and lateral views were obtained and showed good reduction of the fracture and placement of hardware. Following this the wound was copiously irrigated with saline solution followed by closure of the wound. Postop dressings were applied as well as an arm sling, she tolerated the procedure without complications and she was sent to postanesthesia recovery in stable condition Anesthesia: LUZ MARINAA Surgeon: ESTEBAN QUACH (Amilcar Stinson, 1st assist) Estimated blood loss: 50-100ml Pathology: none Condition: stable Disposition: PACU
[2021-12-09] MEDS ORDERED: LACTATED RINGERS 1,000 ML IV SCH (14:00)
--- NOTE | 2021-12-09 14:28 | Post Anesthesia Evaluation ---
- Post Anesthesia Evaluation Patient Participated: Yes Airway Patent: Yes Stable Respiratory Function: Yes Nausea/Vomiting: No Temp > 96.8F: Yes Pain Manageable: Yes Adequeate Hydration: Yes Anesthesia Complications: No Block Receding Appropriately: Yes Patient on Ventilator: No
[2021-12-09] MEDS: LOSARTAN 50 MG TAB PO SCH (14:46)
[2021-12-09] MEDS: amLODIPine 10 MG TAB PO SCH (14:46)
[2021-12-09] MEDS: FERROUS SULFATE 325 MG TAB PO SCH (14:46)
[2021-12-09] MEDS ORDERED: INSULIN LISPRO 100 UNIT/ML SUB-Q ONE ×2 (15:00→16:00)
--- NOTE | 2021-12-09 15:18 | XRay Report ---
INTRAOPERATIVE FLUOROSCOPY: RIGHT HUMERUS INDICATION / CLINICAL INFORMATION: IM NAILING RIGHT HUMERUS. TECHNIQUE: Intraoperative spot images were obtained during the procedure. FINDINGS: Images show intramedullary nail placement through the right humerus See operative/procedure note by performing physician for full details. Fluoroscopy Time: 1.9 minutes. Fluoroscopy Images: 2. Signer Name: Cornelius Adames MD Signed: 12/09/2021 3:13 PM Workstation Name: [id number]
--- NOTE | 2021-12-09 19:31 | Progress Note ---
Assessment and Plan Assessment and plan: -- Closed fracture of single pubic ramus of pelvis Fall precaution. Supportive care Orthopedic evaluated the patient patient, n.p.o. status Continue IV fluids, pain medications, supportive care, PT OT, discharge planning when stable --Humeral fracture right s/pClosed reduction and insertion of intramedullary nail right proximal humerus. Postop care per orthopedic, pain management, physical therapy, supportive care Resume aspirin and Eliquis if okay with orthopedics --Diabetes mellitus type 2 in nonobese Accu-Chek sliding scale coverage ADA diet Insulin as needed -- Hypertension Continue current antihypertensives, as needed hydralazine -- DVT prophylaxis SCD for DVT prophylaxis. Continue Pepcid 20 mg IV every 12 hours for GI prophylaxis. --Full CODE STATUS; --Advance care plan: +30 Discussed with the patient and family her condition Discussed the imaging studies, fracture of the humerus and pelvis Discussed the treatment plan, discussed orthopedic surgeon evaluation And the surgical procedure, also discussed the need for physical therapy and Occupational Therapy And careful postoperative care. As well as fall precautions answered all her questions Total time spent 35 minutes Follow Ortho postop recommendations Physical therapy occupational therapy and home health We will closely monitor the patient and adjust management as needed Plan of care reviewed with the patient and her nurse Disposition; follow clinically, discharge when stable and cleared by Ortho Home health services at discharge History Interval history: I have seen and examined the patient today Patient's chart and medications reviewed Hospitalist Physical - Constitutional Vitals: Temp Pulse Resp BP Pulse Ox 99.2 F 67 16 127/54 100 12/09/21 16:02 12/09/21 16:02 12/09/21 16:02 12/09/21 16:02 12/09/21 16:02 General appearance: Present: mild distress (Secondary to pain), well-nourished - EENT Eyes: Present: PERRL, EOM intact - Neck Neck: Present: supple, normal ROM - Respiratory Respiratory effort: normal Respiratory: bilateral: diminished, negative: rales, rhonchi, wheezing - Cardiovascular Rhythm: regular Heart Sounds: Present: S1 & S2 - Extremities Extremities: abnormal (Right shoulder. Changes) - Abdominal General gastrointestinal: soft, non-tender, non-distended, normal bowel sounds - Integumentary Integumentary: Present: clear, warm - Psychiatric Psychiatric: appropriate mood/affect, cooperative - Neurologic Neurologic: moves all extremities HEART Score - HEART Score Troponin: Troponin T < 0.010 ng/mL (0.00-0.029) 12/07/21 13:55 Results - Labs CBC & Chem 7: 12/09/21 04:00 12/09/21 04:00 Labs: Laboratory Last Values WBC 3.4 K/mm3 (4.5-11.0) L 12/09/21 04:00 RBC 2.92 M/mm3 (3.65-5.03) L 12/09/21 04:00 Hgb 7.7 gm/dl (10.1-14.3) L 12/09/21 04:00 Hct 23.8 % (30.3-42.9) L D 12/09/21 04:00 MCV 82 fl (79-97) 12/09/21 04:00 MCH 26 pg (28-32) L 12/09/21 04:00 MCHC 32 % (30-34) 12/09/21 04:00 RDW 16.0 % (13.2-15.2) H 12/09/21 04:00 Plt Count 156 K/mm3 (140-440) 12/09/21 04:00 Lymph % (Auto) 13.0 % (13.4-35.0) L 12/09/21 04:00 [place] % (Auto) 5.8 % (0.0-7.3) 12/09/21 04:00 Eos % (Auto) 1.1 % (0.0-4.3) 12/09/21 04:00 Baso % (Auto) 0.2 % (0.0-1.8) 12/09/21 04:00 Lymph # (Auto) 0.4 K/mm3 (1.2-5.4) L 12/09/21 04:00 [place] # (Auto) 0.2 K/mm3 (0.0-0.8) 12/09/21 04:00 Eos # (Auto) 0.0 K/mm3 (0.0-0.4) 12/09/21 04:00 Baso # (Auto) 0.0 K/mm3 (0.0-0.1) 12/09/21 04:00 Seg Neutrophils % 79.9 % (40.0-70.0) H 12/09/21 04:00 Seg Neutrophils # 2.7 K/mm3 (1.8-7.7) 12/09/21 04:00 PT 12.7 Sec. (12.2-14.9) 12/07/21 13:55 INR 0.87 (0.87-1.13) 12/07/21 13:55 Sodium 137 mmol/L (137-145) 12/09/21 04:00 Potassium 3.7 mmol/L (3.6-5.0) 12/09/21 04:00 Chloride 102.5 mmol/L (98-107) 12/09/21 04:00 Carbon Dioxide 24 mmol/L (22-30) 12/09/21 04:00 Anion Gap 14 mmol/L 12/09/21 04:00 BUN 19 mg/dL (7-17) H 12/09/21 04:00 Creatinine 0.7 mg/dL (0.6-1.2) 12/09/21 04:00 Estimated GFR > 60 ml/min 12/09/21 04:00 BUN/Creatinine Ratio 27 % 12/09/21 04:00 Glucose 212 mg/dL (65-100) H 12/09/21 04:00 POC Glucose 158 mg/dL (70-105) H 12/09/21 16:37 Calcium 8.0 mg/dL (8.4-10.2) L 12/09/21 04:00 Total Bilirubin 0.40 mg/dL (0.1-1.2) 12/07/21 13:55 AST 22 units/L (5-40) 12/07/21 13:55 ALT 16 units/L (7-56) 12/07/21 13:55 Alkaline Phosphatase 81 units/L (35-129) 12/07/21 13:55 Troponin T < 0.010 ng/mL (0.00-0.029) 12/07/21 13:55 Total Protein 7.1 g/dL (6.3-8.2) 12/07/21 13:55 Albumin 4.2 g/dL (3.9-5) 12/07/21 13:55 Albumin/Globulin Ratio 1.4 % 12/07/21 13:55 Bazan/IV: Voiding Method Bedpan Active Medications - Current Medications Current Medications: Generic Name Dose Route Start Last Admin Trade Name Freq PRN Reason Stop Dose Admin Acetaminophen 650 mg 12/08/21 01:18 Acetaminophen 325 Mg Tab PO Q4H PRN Pain MILD(1-3)/Fever >100.5/[place] Acetaminophen 650 mg 12/09/21 13:00 Acetaminophen 325 Mg Tab PO Q4H PRN Pain MILD(1-3)/Fever >100.5/[place] Albuterol 2.5 mg 12/08/21 01:18 Albuterol 2.5 Mg/3 Ml Nebu IH Q3HRT PRN Shortness Of Breath Amlodipine Besylate 10 mg 12/08/21 10:00 12/09/21 14:46 Amlodipine 10 Mg Tab PO Not Given QDAY PATTI Dextrose 0 ml 12/08/21 01:18 Dextrose 50% In Water (25gm) 50 Ml Syringe IV Q30MIN PRN Hypoglycemia Protocol Docusate Sodium 100 mg 12/08/21 10:00 12/09/21 10:10 Docusate Sodium 100 Mg Cap PO Not Given BID PATTI Enoxaparin Sodium 40 mg 12/10/21 10:00 Enoxaparin 40 Mg/0.4 Ml Inj SUB-Q QDAY PATTI Famotidine 10 mg 12/09/21 10:00 12/09/21 10:05 Famotidine 20 Mg/2 Ml Inj IV 10 mg BID PATTI Administration Ferrous Sulfate 325 mg 12/08/21 10:00 12/09/21 14:46 Ferrous Sulfate 325 Mg Tab PO Not Given DAILY PATTI Sodium Chloride 1,000 mls @ 100 mls/hr 12/08/21 01:30 12/09/21 02:38 Nacl 0.9% 1000 Ml IV 100 mls/hr DIRECT PATTI Administration Lactated Ringer's 1,000 mls @ 42 mls/hr 12/09/21 14:00 Lactated Ringers IV DIRECT PATTI Insulin Human Isoph/Insulin Regular 10 unit 12/09/21 08:00 Insulin Nph/Regular 70/30 Inj SUB-Q BIDDIAB PATTI Insulin Human Isoph/Insulin Regular 10 unit 12/08/21 21:45 Insulin Nph/Regular 70/30 Inj SUB-Q 12/08/21 21:46 ONCE ONE Insulin Human Lispro 0 unit 12/09/21 22:00 Insulin Lispro 100 Unit/Ml SUB-Q ACHS [facility] Protocol Ketorolac Tromethamine 15 mg 12/09/21 13:00 Ketorolac 30 Mg/1 Ml Inj IV 12/14/21 12:59 Q6H PRN Pain, Moderate (4-6) Latanoprost 1 drops 12/08/21 22:00 12/08/21 21:59 Latanoprost 0.005% Ophth Soln 2.5 Ml OU 1 drops HS PATTI Administration Losartan Potassium 100 mg 12/08/21 10:00 12/09/21 14:46 Losartan 50 Mg Tab PO Not Given DAILY PATTI Midazolam HCl 2 mg 12/09/21 11:00 Midazolam 2 Mg/2 Ml Inj IV 12/09/21 23:59 PREOP NR Morphine Sulfate 2 mg 12/08/21 01:18 12/09/21 02:38 Morphine 2 Mg/1 Ml Inj IV 2 mg Q4H PRN Administration Pain, Moderate (4-6) Morphine Sulfate 4 mg 12/08/21 01:18 12/09/21 10:11 Morphine 4 Mg/1 Ml Inj IV 4 mg Q4H PRN Administration Pain , Severe (7-10) Morphine Sulfate 2 mg 12/09/21 13:00 Morphine 2 Mg/1 Ml Inj IV Q4H PRN Pain, Moderate (4-6) Morphine Sulfate 4 mg 12/09/21 13:00 Morphine 4 Mg/1 Ml Inj IV Q4H PRN Pain , Severe (7-10) Ondansetron HCl 4 mg 12/08/21 01:18 Ondansetron 4 Mg/2 Ml Inj IV Q8H PRN Nausea And Vomiting Sodium Chloride 10 ml 12/08/21 10:00 12/09/21 10:10 Sodium Chloride 0.9% 10 Ml Flush Syringe IV 10 ml BID PATTI Administration Sodium Chloride 10 ml 12/08/21 01:18 Sodium Chloride 0.9% 10 Ml Flush Syringe IV PRN PRN LINE FLUSH Sodium Chloride 10 ml 12/09/21 13:00 Sodium Chloride 0.9% 10 Ml Flush Syringe IV PRN PATTI Nutrition/Malnutrition Assess - Dietary Evaluation Nutrition/Malnutrition Findings: Nutrition Notes Start: 12/08/21 18:47 Freq: Status: Active Protocol: Document 12/08/21 18:47 LEVY (Rec: 12/08/21 18:55 LEVY [id number]) Nutrition Notes Need for Assessment generated from: MD Order,Education Initial or Follow up Brief Note Current Diagnosis Diabetes,Hypertension Other Pertinent Diagnosis Fall, R-Humerus Fracture, Pelvic Single Pubic Ramus Fracture. Current Diet NPO (since 12/08 01:19). Height 5 ft 2 in Weight 53.524 kg [place] Body Weight (kg) 50.00 BMI 21.5 Intake Prior to Admission Good Weight change and time frame Pt denies having loss body weight [employer]. Weight Status Appropriate Subjective/Other Information RD consult for nutrition education assessment. Pt currently on NPO. Pt is on Room Air, O2 saturation @ 95%, according to Vital Signs notes. Pt still in critical condition , not a candidate for Nutrition Education at the time, will assess feasibility on F/U. Percent of energy/protein needs met: Pt currently on NPO. Nutrition Intervention Follow-Up By: 12/10/21 Additional Comments Nutrition education will be provided on F/U, if feasible. Continue monitoring food tolerance, %PO intake of meals , and BM.
[2021-12-10] MEDS: LATANOPROST 0.005% OPHTH SOLN 2.5 ML OU SCH (02:04)
[2021-12-10 05:33] LABS: Basophils % (Auto) 0.2 % (0.0-1.8); Eosinophils # (Auto) 0.1 K/mm3 (0.0-0.4); Eosinophils % (Auto) 1.6 % (0.0-4.3); Hematocrit 22.3 % (30.3-42.9); Hemoglobin 7.4 gm/dl (10.1-14.3); Lymphocytes # (Auto) 0.9 K/mm3 (1.2-5.4); Lymphocytes % (Auto) 21.3 % (13.4-35.0); Mean Corpuscular HGB Conc 33 % (30-34); Mean Corpuscular Volume 81 fl (79-97); Monocytes # (Auto) 0.3 K/mm3 (0.0-0.8); Monocytes % (Auto) 6.8 % (0.0-7.3); Platelet Count 155 K/mm3 (140-440); Red Blood Count 2.76 M/mm3 (3.65-5.03); Red Cell Distribution Width 16.3 % (13.2-15.2)
[2021-12-10] MEDS: MORPHINE 4 MG/1 ML INJ IV PRN (05:42)
[2021-12-10 05:55] LABS: BUN/Creatinine Ratio 24; Blood Urea Nitrogen 19 mg/dL (7-17); Calcium 8.1 mg/dL (8.4-10.2); Hemolysis Index 1
[2021-12-10] MEDS: INSULIN LISPRO 100 UNIT/ML SUB-Q SCH ×4 (09:27→21:41)
[2021-12-10] MEDS: amLODIPine 10 MG TAB PO SCH (09:28)
[2021-12-10] MEDS: FERROUS SULFATE 325 MG TAB PO SCH (09:28)
[2021-12-10] MEDS: DOCUSATE SODIUM 100 MG CAP PO SCH ×2 (09:28→21:33)
[2021-12-10] MEDS: FAMOTIDINE 20 MG/2 ML INJ IV SCH ×2 (09:29→21:34)
[2021-12-10] MEDS: LOSARTAN 50 MG TAB PO SCH (09:29)
[2021-12-10] MEDS: ENOXAPARIN 40 MG/0.4 ML INJ SUB-Q SCH (09:29)
--- NOTE | 2021-12-10 11:22 | Progress Note ---
Assessment and Plan Assessment and plan: #Humeral fracture right s/p repair #Closed fracture of single pubic ramus of pelvis -continue fall precaution, supportive care, PRN pain medications -Orthopedics following patient, assistance appreciated -PT/OT evaluations pending -s/p closed reduction and insertion of intramedullary nail right proximal humerus. -continue lovenox per Orthopaedic recommendations #Diabetes mellitus type 2, insulin dependent -Accu-Chek w/ sliding scale -continue ADA diet -lantus 8U qday added -patient takes Novolin at home, not on formulary here #Hypertension -Continue current antihypertensives, as needed hydralazine -goal SBP less than 160 while inpatient #Normocytic anemia -chronic, per chart review -Hgb 7.4, was 10 on admission drop likely secondary to hemoconcentration, baseline around 8 -will transfuse for Hgb less than 7 #DVT/GI prophylaxis SCD for DVT prophylaxis. Continue Pepcid 20 mg IV every 12 hours for GI prophylaxis. #Advanced care planning -Disease education conducted, care plan discussed, diagnoses discussed, prognosis discussed, and patient acknowledges understanding with care plan -Time: +30 min #Discharge planning -pending PT/OT evaluation -patient would like to be discharged home w/ HH PT, CM aware History Interval history: No acute events overnight. Patient reports pain in her right arm with certain movements. Reports that as needed pain medications have been working. No other complaints at this time. Hospitalist Physical - Physical exam Narrative exam: GENERAL: Well-developed well-nourished. In no acute distress. HEENT: Normocephalic. Atraumatic. NECK: Supple. CHEST/LUNGS: CTAB on room air HEART/CARDIOVASCULAR: RRR. No murmur, rubs or gallops appreciated. ABDOMEN: +BS. NT/ND. SKIN: No rashes noted. NEURO: No focal motor deficit. Follows all commands. MUSCULOSKELETAL: No joint effusion appreciated EXTREMITIES: Right humerus bandage intact and R in sling. No cyanosis, clubbing or edema. PSYCH: Cooperative. - Constitutional Vitals: Temp Pulse Resp BP Pulse Ox 98.6 F 69 18 151/55 97 12/10/21 07:43 12/10/21 07:43 12/10/21 10:00 12/10/21 07:43 12/10/21 10:00 General appearance: Present: mild distress (Secondary to pain), well-nourished HEART Score - HEART Score Troponin: Troponin T < 0.010 ng/mL (0.00-0.029) 12/07/21 13:55 Results - Labs CBC & Chem 7: 12/10/21 04:48 12/10/21 04:48 Labs: Laboratory Last Values WBC 4.0 K/mm3 (4.5-11.0) L 12/10/21 04:48 RBC 2.76 M/mm3 (3.65-5.03) L 12/10/21 04:48 Hgb 7.4 gm/dl (10.1-14.3) L 12/10/21 04:48 Hct 22.3 % (30.3-42.9) L 12/10/21 04:48 MCV 81 fl (79-97) 12/10/21 04:48 MCH 27 pg (28-32) L 12/10/21 04:48 MCHC 33 % (30-34) 12/10/21 04:48 RDW 16.3 % (13.2-15.2) H 12/10/21 04:48 Plt Count 155 K/mm3 (140-440) 12/10/21 04:48 Lymph % (Auto) 21.3 % (13.4-35.0) 12/10/21 04:48 [place] % (Auto) 6.8 % (0.0-7.3) 12/10/21 04:48 Eos % (Auto) 1.6 % (0.0-4.3) 12/10/21 04:48 Baso % (Auto) 0.2 % (0.0-1.8) 12/10/21 04:48 Lymph # (Auto) 0.9 K/mm3 (1.2-5.4) L 12/10/21 04:48 [place] # (Auto) 0.3 K/mm3 (0.0-0.8) 12/10/21 04:48 Eos # (Auto) 0.1 K/mm3 (0.0-0.4) 12/10/21 04:48 Baso # (Auto) 0.0 K/mm3 (0.0-0.1) 12/10/21 04:48 Seg Neutrophils % 70.1 % (40.0-70.0) H 12/10/21 04:48 Seg Neutrophils # 2.8 K/mm3 (1.8-7.7) 12/10/21 04:48 PT 12.7 Sec. (12.2-14.9) 12/07/21 13:55 INR 0.87 (0.87-1.13) 12/07/21 13:55 Sodium 141 mmol/L (137-145) 12/10/21 04:48 Potassium 4.0 mmol/L (3.6-5.0) 12/10/21 04:48 Chloride 106.3 mmol/L (98-107) 12/10/21 04:48 Carbon Dioxide 28 mmol/L (22-30) 12/10/21 04:48 Anion Gap 11 mmol/L 12/10/21 04:48 BUN 19 mg/dL (7-17) H 12/10/21 04:48 Creatinine 0.8 mg/dL (0.6-1.2) 12/10/21 04:48 Estimated GFR > 60 ml/min 12/10/21 04:48 BUN/Creatinine Ratio 24 % 12/10/21 04:48 Glucose 162 mg/dL (65-100) H 12/10/21 04:48 POC Glucose 201 mg/dL (70-105) H 12/10/21 07:46 Calcium 8.1 mg/dL (8.4-10.2) L 12/10/21 04:48 Total Bilirubin 0.40 mg/dL (0.1-1.2) 12/07/21 13:55 AST 22 units/L (5-40) 12/07/21 13:55 ALT 16 units/L (7-56) 12/07/21 13:55 Alkaline Phosphatase 81 units/L (35-129) 12/07/21 13:55 Troponin T < 0.010 ng/mL (0.00-0.029) 12/07/21 13:55 Total Protein 7.1 g/dL (6.3-8.2) 12/07/21 13:55 Albumin 4.2 g/dL (3.9-5) 12/07/21 13:55 Albumin/Globulin Ratio 1.4 % 12/07/21 13:55 [place]/IV: Voiding Method External Female Catheter Active Medications - Current Medications Current Medications: Generic Name Dose Route Start Last Admin Trade Name Freq PRN Reason Stop Dose Admin Acetaminophen 650 mg 12/08/21 01:18 12/09/21 22:33 Acetaminophen 325 Mg Tab PO 650 mg Q4H PRN Administration Pain MILD(1-3)/Fever >100.5/[place] Acetaminophen 650 mg 12/09/21 13:00 Acetaminophen 325 Mg Tab PO Q4H PRN Pain MILD(1-3)/Fever >100.5/[place] Albuterol 2.5 mg 12/08/21 01:18 Albuterol 2.5 Mg/3 Ml Nebu IH Q3HRT PRN Shortness Of Breath Amlodipine Besylate 10 mg 12/08/21 10:00 12/10/21 09:28 Amlodipine 10 Mg Tab PO 10 mg QDAY PATTI Administration Dextrose 0 ml 12/08/21 01:18 Dextrose 50% In Water (25gm) 50 Ml Syringe IV Q30MIN PRN Hypoglycemia Protocol Docusate Sodium 100 mg 12/08/21 10:00 12/10/21 09:28 Docusate Sodium 100 Mg Cap PO 100 mg BID PATTI Administration Enoxaparin Sodium 40 mg 12/10/21 10:00 12/10/21 09:29 Enoxaparin 40 Mg/0.4 Ml Inj SUB-Q 40 mg QDAY PATTI Administration Famotidine 10 mg 12/09/21 10:00 12/10/21 09:29 Famotidine 20 Mg/2 Ml Inj IV 10 mg BID PATTI Administration Ferrous Sulfate 325 mg 12/08/21 10:00 12/10/21 09:28 Ferrous Sulfate 325 Mg Tab PO 325 mg DAILY PATTI Administration Sodium Chloride 1,000 mls @ 100 mls/hr 12/08/21 01:30 12/09/21 02:38 Nacl 0.9% 1000 Ml IV 100 mls/hr DIRECT PATTI Administration Lactated Ringer's 1,000 mls @ 42 mls/hr 12/09/21 14:00 Lactated Ringers IV DIRECT PATTI Insulin Human Isoph/Insulin Regular 10 unit 12/09/21 08:00 Insulin Nph/Regular 70/30 Inj SUB-Q BIDDIAB PATTI Insulin Human Isoph/Insulin Regular 10 unit 12/08/21 21:45 Insulin Nph/Regular 70/30 Inj SUB-Q 12/08/21 21:46 ONCE ONE Insulin Human Lispro 0 unit 12/09/21 22:00 12/10/21 09:27 Insulin Lispro 100 Unit/Ml SUB-Q 3 unit ACHS PATTI Administration Protocol Ketorolac Tromethamine 15 mg 12/09/21 13:00 12/10/21 02:08 Ketorolac 30 Mg/1 Ml Inj IV 12/14/21 12:59 15 mg Q6H PRN Administration Pain, Moderate (4-6) Latanoprost 1 drops 12/08/21 22:00 12/10/21 02:04 Latanoprost 0.005% Ophth Soln 2.5 Ml OU Not Given HS PATTI Losartan Potassium 100 mg 12/08/21 10:00 12/10/21 09:29 Losartan 50 Mg Tab PO 100 mg DAILY PATTI Administration Morphine Sulfate 2 mg 12/08/21 01:18 12/09/21 02:38 Morphine 2 Mg/1 Ml Inj IV 2 mg Q4H PRN Administration Pain, Moderate (4-6) Morphine Sulfate 4 mg 12/08/21 01:18 12/10/21 05:42 Morphine 4 Mg/1 Ml Inj IV 4 mg Q4H PRN Administration Pain , Severe (7-10) Morphine Sulfate 2 mg 12/09/21 13:00 Morphine 2 Mg/1 Ml Inj IV Q4H PRN Pain, Moderate (4-6) Morphine Sulfate 4 mg 12/09/21 13:00 Morphine 4 Mg/1 Ml Inj IV Q4H PRN Pain , Severe (7-10) Ondansetron HCl 4 mg 12/08/21 01:18 Ondansetron 4 Mg/2 Ml Inj IV Q8H PRN Nausea And Vomiting Sodium Chloride 10 ml 12/08/21 10:00 12/10/21 09:29 Sodium Chloride 0.9% 10 Ml Flush Syringe IV 10 ml BID PATTI Administration Sodium Chloride 10 ml 12/08/21 01:18 Sodium Chloride 0.9% 10 Ml Flush Syringe IV PRN PRN LINE FLUSH Sodium Chloride 10 ml 12/09/21 13:00 Sodium Chloride 0.9% 10 Ml Flush Syringe IV PRN PATTI Nutrition/Malnutrition Assess - Dietary Evaluation Nutrition/Malnutrition Findings: Nutrition Notes Start: 12/08/21 18:47 Freq: Status: Active Protocol: Document 12/08/21 18:47 LEVY (Rec: 12/08/21 18:55 LEVY [id number]) Nutrition Notes Need for Assessment generated from: MD Order,Education Initial or Follow up Brief Note Current Diagnosis Diabetes,Hypertension Other Pertinent Diagnosis Fall, R-Humerus Fracture, Pelvic Single Pubic Ramus Fracture. Current Diet NPO (since 12/08 01:19). Height 5 ft 2 in Weight 53.524 kg [place] Body Weight (kg) 50.00 BMI 21.5 Intake Prior to Admission Good Weight change and time frame Pt denies having loss body weight JOWL TRIMMER. Weight Status Appropriate Subjective/Other Information RD consult for nutrition education assessment. Pt currently on NPO. Pt is on Room Air, O2 saturation @ 95%, according to Vital Signs notes. Pt still in critical condition , not a candidate for Nutrition Education at the time, will assess feasibility on F/U. Percent of energy/protein needs met: Pt currently on NPO. Nutrition Intervention Follow-Up By: 12/10/21 Additional Comments Nutrition education will be provided on F/U, if feasible. Continue monitoring food tolerance, %PO intake of meals , and BM.
[2021-12-10] MEDS ORDERED: INSULIN GLARGINE 100 UNITS/ML SUB-Q SCH (12:30)
--- NOTE | 2021-12-10 14:36 | Progress Note ---
Assessment and Plan Status post IM nail right proximal humerus Right pubic ramus fracture Plan we will start physical therapy for gait training as well as pendulum exercises for her right upper extremity Subjective Date of service: 12/10/21 Interval history: No major complaints noted patient states arm feels better encouraged to perform pendulum exercises at this point Objective Vital signs: Vital Signs - 12hr 12/10/21 12/10/21 12/10/21 04:20 05:00 07:41 Temperature 98.6 F Pulse Rate 68 57 L Respiratory 16 Rate Blood Pressure 137/57 O2 Sat by Pulse 100 100 Oximetry 12/10/21 12/10/21 12/10/21 07:43 10:00 11:28 Temperature 98.6 F 98.6 F Pulse Rate 69 106 H Respiratory 18 18 16 Rate Blood Pressure 151/55 174/81 O2 Sat by Pulse 100 97 96 Oximetry 12/10/21 13:50 Temperature Pulse Rate Respiratory 18 Rate Blood Pressure 154/63 O2 Sat by Pulse Oximetry - Labs CBC & BMP: 12/10/21 04:48 12/10/21 04:48 Labs: Abnormal lab results 12/09/21 12/09/21 12/09/21 Range/Units 15:08 16:37 21:30 WBC (4.5-11.0) K/mm3 RBC (3.65-5.03) M/mm3 Hgb (10.1-14.3) gm/dl Hct (30.3-42.9) % MCH (28-32) pg RDW (13.2-15.2) % Lymph # (Auto) (1.2-5.4) K/mm3 Seg Neutrophils % (40.0-70.0) % BUN (7-17) mg/dL Glucose (65-100) mg/dL POC Glucose 239 H 158 H > 600 H (70-105) mg/dL Calcium (8.4-10.2) mg/dL 12/10/21 12/10/21 12/10/21 Range/Units 01:07 04:48 04:48 WBC 4.0 L (4.5-11.0) K/mm3 RBC 2.76 L (3.65-5.03) M/mm3 Hgb 7.4 L (10.1-14.3) gm/dl Hct 22.3 L (30.3-42.9) % MCH 27 L (28-32) pg RDW 16.3 H (13.2-15.2) % Lymph # (Auto) 0.9 L (1.2-5.4) K/mm3 Seg Neutrophils % 70.1 H (40.0-70.0) % BUN 19 H (7-17) mg/dL Glucose 162 H (65-100) mg/dL POC Glucose 207 H (70-105) mg/dL Calcium 8.1 L (8.4-10.2) mg/dL 12/10/21 12/10/21 12/10/21 Range/Units 05:56 07:46 11:29 WBC (4.5-11.0) K/mm3 RBC (3.65-5.03) M/mm3 Hgb (10.1-14.3) gm/dl Hct (30.3-42.9) % MCH (28-32) pg RDW (13.2-15.2) % Lymph # (Auto) (1.2-5.4) K/mm3 Seg Neutrophils % (40.0-70.0) % BUN (7-17) mg/dL Glucose (65-100) mg/dL POC Glucose 183 H 201 H 236 H (70-105) mg/dL Calcium (8.4-10.2) mg/dL
[2021-12-10] MEDS: POLYETHYLENE GLYCOL 3350 17 GM POWDER PO SCH (17:44)
[2021-12-11] MEDS: LATANOPROST 0.005% OPHTH SOLN 2.5 ML OU SCH ×2 (03:55→06:39)
[2021-12-11] MEDS: INSULIN NPH/REGULAR 70/30 INJ SUB-Q SCH ×2 (07:41→07:42)
[2021-12-11] MEDS: INSULIN LISPRO 100 UNIT/ML SUB-Q SCH ×2 (07:42→14:04)
[2021-12-11] MEDS ORDERED: INSULIN GLARGINE 100 UNITS/ML SUB-Q SCH (08:00)
[2021-12-11] MEDS: ENOXAPARIN 40 MG/0.4 ML INJ SUB-Q SCH (09:28)
[2021-12-11] MEDS: amLODIPine 10 MG TAB PO SCH (09:28)
[2021-12-11] MEDS: FERROUS SULFATE 325 MG TAB PO SCH (09:28)
[2021-12-11] MEDS: FAMOTIDINE 20 MG/2 ML INJ IV SCH (09:29)
[2021-12-11] MEDS: DOCUSATE SODIUM 100 MG CAP PO SCH (09:29)
[2021-12-11] MEDS: POLYETHYLENE GLYCOL 3350 17 GM POWDER PO SCH (09:29)
[2021-12-11] MEDS: LOSARTAN 50 MG TAB PO SCH (09:29)
--- NOTE | 2021-12-11 11:37 | Discharge Summary ---
Providers - Providers Date of Admission: 12/08/21 01:18 Date of discharge: 12/11/21 Attending physician: ARTURO PACE MD 12/07/21 23:18 Consult to Physician [CONS] Routine Comment: Dr. Steen spoke with Dr. Crooks @ [phone] Consulting Provider: ESTEBAN CROOKS Physician Instructions: wanted patient admitted to hospitalist Reason For Exam: fracture humeral neck/Pelvic ramus 12/08/21 01:18 Consult to Dietitian/Nutrition [CONS] Routine Physician Instructions: Reason For Exam: Reason for Consult: Diet education 12/09/21 13:00 Consult to Case Management [CONS] Routine Services Needed at Discharge: Other Notified:: yes Additional Physician Instructions: Assess Discharge needs. Physical Therapy Evaluation and Treat [CONS] Routine Comment: s/p IM nail right humerus, right pubic ginny fx Reason For Exam: Eval and Treat Weight bearing status?: Full wt bearing Assistive devices?: Yes If so list: Walker Hospitalization Reason for admission: R humerus and R hip fracture Condition: Stable Hospital course: 82-year-old female history of hypertension, diabetes and arthritis who presented with right shoulder and hip pain status post fall. Imaging showed a right humeral neck fracture, pelvic rami superior and inferior ramus fracture. Orthopedic surgery was consulted. CT of the right shoulder showed a mild comminuted transverse fracture of the surgical neck of the humerus without humeral head dislocation. IM nailing right humerus was performed on 12/09. Physical therapy evaluated the patient and recommended home health with physical therapy. Once stable, patient was discharged home with son and DVT prophylaxis for right hip fracture. Disposition: 01 HOME / SELF CARE / HOMELESS Final Discharge Diagnosis (Prints w/discharge instructions): Right humeral fracture status post repair. Closed fracture of single pubic rami. Type 2 diabetes, insulin-dependent. Hypertension. Normocytic anemia Time spent for discharge: 35 minutes Core Measure Documentation - Palliative Care Palliative Care/ Comfort Measures: Not Applicable - Core Measures Any of the following diagnoses?: none Exam - Physical Exam Narrative exam: GENERAL: Well-developed well-nourished. In no acute distress. HEENT: Normocephalic. Atraumatic. NECK: Supple. CHEST/LUNGS: CTAB on room air HEART/CARDIOVASCULAR: RRR. No murmur, rubs or gallops appreciated. ABDOMEN: +BS. NT/ND. SKIN: No rashes noted. NEURO: No focal motor deficit. Follows all commands. MUSCULOSKELETAL: No joint effusion appreciated EXTREMITIES: Right humerus bandage intact and R in sling. No cyanosis, clubbing or edema. PSYCH: Cooperative. - Constitutional Vitals: Temp Pulse Resp BP Pulse Ox 98.5 F 76 18 154/56 98 12/11/21 07:30 12/11/21 07:30 12/11/21 07:30 12/11/21 07:30 12/11/21 08:49 Plan Care Plan Goals: Please follow-up with your primary care provider. Please make an appointment to follow-up with Dr. Crooks within the next 1 to 2 weeks. Please take all medications as prescribed. You will be receiving home health with physical therapy to help improve your movement. Follow up with: MICHAEL YAN [Other] - 3-5 Days ESTEBAN CROOKS MD [Staff Physician] - 14 Days Prescriptions: Apixaban [Eliquis] 2.5 mg PO BID 35 Days #70 tablet Ferrous Sulfate [Feosol 325 MG tab] 325 mg PO DAILY 30 Days #30 tablet Ketorolac [Toradol] 10 mg PO Q6H PRN 5 Days #20 tab PRN Reason: Pain
[2021-12-11 12:07] VITALS: BP 153/61
== END 2021-12-11 17:18 | disposition home health service (06) | DRG 493 ==
LOC: ED 11:15 → 4A 12-08 01:18
PROVIDERS: ADMIT Hospitalist; ATTEND Student in an Organized Health Care Education/Training Program
PROC: 0PSC36Z Reposition Right Humeral Head with Intramedullary Internal Fixation Device, Percutaneous Approach (ICD-10-PCS; principal; 2021-12-09)
DX: S42.224A 2-part nondisplaced fracture of surgical neck of right humerus, initial encounter for closed fracture (principal); S32.591A Other specified fracture of right pubis, initial encounter for closed fracture; I10 Essential (primary) hypertension; M19.90 Unspecified osteoarthritis, unspecified site; D64.9 Anemia, unspecified; E11.9 Type 2 diabetes mellitus without complications; W18.39XA Other fall on same level, initial encounter; Z88.1 Allergy status to other antibiotic agents; Z88.6 Allergy status to analgesic agent; Z88.8 Allergy status to other drugs, medicaments and biological substances; Z90.49 Acquired absence of other specified parts of digestive tract; Z98.51 Tubal ligation status; Z79.899 Other long term (current) drug therapy; Y93.89 Activity, other specified; Y92.89 Other specified places as the place of occurrence of the external cause; Y99.8 Other external cause status; Z88.5 Allergy status to narcotic agent
CPT/HCPCS: 36415; 64450; 73521; 80048; 80053; 82962; 84484; 85025; 85610; 93005; 94640; 94760; G0378; J3490; Q9967; C1713; C1769; J0690; J1100; J1650; J1815; J1885; J2270; J2405; J2704; J3010; J7030; J7120